=== PATIENT | male | born 1970 | race Caucasian/White ===

== ENCOUNTER 2023-01-28 02:46 | Emergency (ER) | payer OTHER, SELFPAY ==
--- NOTE | ~2023-01-28 | CT_ITS ---
EXAMINATION: CT ABDOMEN AND PELVIS WITHOUT CONTRAST CLINICAL INFORMATION: Right flank pain COMPARISON: None available. TECHNIQUE: Multidetector volumetric imaging was performed from the superior aspect of the liver through the pubic symphysis. Sagittal and coronal reformatted images were obtained on the technologist's workstation. This CT examination was performed using dose optimization techniques as appropriate, variously including the following: *Automated exposure control *Adjustment of mA and/or kV according to patient size (this includes techniques or standardized protocols for targeted exams where dose is matched to indication/reason for exam; i.e. extremities or head) *Use of iterative reconstruction technique DLP: 567 mGy-cm FINDINGS: LUNG BASES: The visualized lung bases are unremarkable. LIVER, GALLBLADDER, AND BILIARY TREE: The liver is normal in size, shape, and attenuation. No focal hepatic lesion or biliary ductal dilatation is identified on this noncontrast exam. The gallbladder is unremarkable with no evidence of radiopaque gallstones, gallbladder wall thickening, or obvious pericholecystic inflammatory changes. PANCREAS: Unremarkable. SPLEEN: Unremarkable. ADRENAL GLANDS: Unremarkable. KIDNEYS AND URETERS: No hydronephrosis or obstructing calculus bilaterally. BLADDER: Unremarkable. GASTROINTESTINAL TRACT: Limited assessment for wall thickening in the distal colon due to luminal collapse. No evidence of bowel obstruction. The appendix is unremarkable. No free fluid or free air is seen. ABDOMINAL WALL: No significant hernia is appreciated. LYMPH NODES: Normal. VASCULAR: Unremarkable. PELVIC VISCERA: Unremarkable. OSSEOUS STRUCTURES: Degenerative change in the lower lumbar spine. CT/CT abdomen pelvis wo IV con IMPRESSION: No acute findings identified in the abdomen/pelvis. No hydronephrosis or obstructing calculus.
[2023-01-28 02:48] VITALS: BP 137/85; PULSE 97; RESP 18; TEMP 36.6; O2SAT 98; BMI 27.3
--- NOTE | 2023-01-28 03:00 | ED.MALEGU ---
HPI - Male Genitourinary General Chief complaint: Urogenital-Male Stated complaint: abdominal pain Time Seen by Provider: 01/28/23 02:55 Source: patient Mode of arrival: ambulatory Limitations: no limitations History of Present Illness HPI Narrative: 1 week of right flank pain going into the groin with dysuria Complaint: testicle pain and dysuria Onset (ago): week(s) Duration: constant Related Data Previous Rx's Medication Instructions Recorded tamsulosin 0.4 mg capsule (Flomax) 0.4 mg PO BEDTIME #30 caps 01/28/23 Allergies Allergy/AdvReac Type Severity Reaction Status Date / Time No Known Allergies Allergy Verified 05/11/20 08:45 [No Known Allergies*] Review of Systems Review of Systems: Yes all other systems are reviewed and are negative Neurologic: Denies Sensory deficit (Neuro) REPLACED BY [facility] Past Medical History Surgical History History of tonsillectomy History of nasal septoplasty History of vasectomy Family History Family History Father No problems noted. Mother Pancreatic cancer Sister In good health Social History Social History Smoked in Last 30 Days: No Use of substances other than those prescribed or required for medical reasons: No Advance Directives: No Advance Directives Information Provided: Yes Physical Exam Vital Signs: Vital Signs: Last Vital Signs Temp 97.8 F 01/28/23 02:48 Pulse 97 01/28/23 02:48 Resp 18 01/28/23 02:48 BP 137/85 01/28/23 02:48 Pulse Ox 98 01/28/23 02:48 O2 Del Method Room Air 01/28/23 02:48 BMI result Body Mass Index 27.3 Const: General: healthy appearing Nutritional Appearance: average body habitus Orientation/consciousness: oriented to person and patient oriented x3 Limitations: no limitations HEENT: Head: Yes normal to inspection Ears: external ears normal General nose exam: Normal external nose present Mouth: Normal oral and palatal mucosa present and oropharynx normal Throat: Yes posterior oropharynx normal Eyes: General: appearance normal, both eyes and all related structures Neck: Other: supple Neck: Yes normal visual inspection Chest: Chest palpation & inspection: normal inspection of the chest Resp: Auscultation: clear to auscultation bilaterally Cardio: Jugular venous distension: no JVD Rate: regular rate Rhythm: regular rhythm Heart sounds: S1 normal heart sound present and S2 normal heart sound present GI: Other: no palpable bladder, bladder scan was only 230cc. Inspection: Yes normal to inspection Palpation (GI): Soft to palpation, nontender and No hepatosplenomegaly present Auscultation: normal bowel sounds Back/Spine/Pelvis: Other: mild right CVAT Skin: General skin exam: no rashes or lesions noted Neuro: General: oriented to person and patient oriented x3 Cranial nerves: Yes CN's II-XII intact bilaterally Motor exam (neuro): 5/5 motor strength present throughout Sensory Exam: No Sensory deficit (Neuro) Extrem: General: Yes normal to inspection Psych: Appearance: grossly normal Course Reevaluation(s) Reevaluation #1: no urine infection, no hematuria, CT negative for stone or hydro will have patient urinate and then get Post void residual, impression BPH Time: 05:04 Medications Administered Discontinued Medications Generic Name Dose Route Start Last Admin Trade Name Freq PRN Reason Stop Dose Admin Sodium Chloride 1,000 mls @ 999 mls/hr 01/28/23 03:00 01/28/23 04:18 Ns IVCONT 01/28/23 05:00 999 mls/hr .Q1H1M DAVID Administration Ketorolac Tromethamine 30 mg 01/28/23 03:00 01/28/23 03:11 Ketorolac Tromethamine 30 Mg/Ml Vial IVPUSH 01/28/23 03:01 30 mg ONCE ONE Administration Tamsulosin HCl 0.4 mg 01/28/23 04:07 01/28/23 04:13 Tamsulosin Hcl 0.4 Mg Capsule PO 01/28/23 04:08 0.4 mg ONCE ONE Administration Medical Decision Making Differential Diagnosis Differential Diagnoses: The differential diagnosis associated with the presentation includes (renal colic, hydronephrosis, pyelonephritis, UTI, BPH were all considered) Admission/Observation Consideration of admission/observation: Escalation of care including admission/observation considered (upon arrival patient was considered for admission) Lab Data MDM Lab Attestation statement: I reviewed the patient's lab results. (no UTI no evidence of renal failure) 01/28/23 03:10 01/28/23 03:10 Labs: Lab Results 01/28/23 Range/Units 03:10 WBC 6.9 (4.8-10.8) X10*3/uL RBC 4.65 (4.60-5.80) X10*6/uL Hgb 14.3 (14.0-18.0) g/dl Hct 40.0 L (42.0-52.0) % MCV 86.0 (80.0-98.0) fL MCH 30.8 (27.0-33.0) pg MCHC 35.8 (31.0-36.0) g/dl RDW 11.4 (11.0-16.0) % Plt Count 205 (160-400) X10*3/uL MPV 9.6 (9.4-12.4) fL Immature Gran % (Auto) 0.3 (0.0-0.4) % Neut % (Auto) 57.9 (45-73) % Lymph % (Auto) 29.2 (20-40) % [place] % (Auto) 10.2 (2-11) % Eos % (Auto) 2.0 (0-4) % Baso % (Auto) 0.4 (0-2) % Lymph # (Auto) 2.0 (1.2-4.9) X10*3/uL [place] # (Auto) 0.7 (0.1-1.2) X10*3/uL Eos # (Auto) 0.1 (0.0-0.4) X10*3/uL Baso # (Auto) 0.0 (0.0-0.2) X10*3/uL Abs Immat Gran (auto) 0.02 (0.00-0.03) X10*3/uL Absolute Neuts (auto) 4.0 (2.0-8.3) x10*3/uL Absolute Nucleated RBC 0.000 (0.0-0.012) X10*3/uL Nucleated RBC % (auto) 0.0 (0.0-0.2) /100WBC Sodium 139 (135-145) mmol/L Potassium 3.9 (3.3-5.1) mmol/L Chloride 105 (96-108) mmol/L Carbon Dioxide 22 (22-29) mmol/L Anion Gap 16 (12-20) BUN 22 H (9-16) mg/dL Creatinine 1.12 (0.5-1.4) mg/dL Estim Creat Clear Calc 88.1 Estimated GFR > 60 Random Glucose 106 (60-115) mg/dL Calcium 10.0 (8.4-10.2) mg/dL Urine Color Yellow Urine Appearance Clear Urine pH 5.5 (5.0-9.0) Ur Specific [place] 1.015 (1.005-1.025) Urine Protein Negative (Neg-Trace) mg/dL Urine Glucose (UA) Negative (Negative) mg/dL Urine Ketones Negative (Negative) mg/dL Urine Blood Negative (Negative) Urine Nitrite Negative (Negative) Ur Leukocyte Esterase Negative (Negative) Independent Interpretation I performed an independent interpretation of an: Ultrasound (bladder scan at bedside, 230cc) Independent Historian Clinical information obtained from an independent historian. History obtained from or confirmed by: Spouse Prescription Management I considered prescription management with: Antibiotic (considered no evidence of UTI) Discharge Plan Discharge Clinical Impression: Benign prostate hyperplasia Patient Disposition: Home, Self-Care Instructions: Enlarged Prostate (BPH) (ED) Prescriptions: New tamsulosin [Flomax] 0.4 mg capsule 0.4 mg PO BEDTIME Qty: 30 0RF Referrals: Sarah Freeman MD [Primary Care Provider] - 5 days Nguyễn Sesay MD [Physician] - 1 week
[2023-01-28] MEDS: 0.9 % Sodium Chloride 1,000 ML 999 ML IVCONT ×2 (03:11→04:18)
[2023-01-28] MEDS: Ketorolac Tromethamine 30 MG/ML VIAL IVPUSH (03:11)
[2023-01-28 03:16] LABS: MANUAL DIFF FLAG NO
[2023-01-28 03:17] LABS: Basophils Percent Auto 0.4 % (0-2); Eosinophils Absolute Auto 0.1 X10*3/uL (0.0-0.4); Hemoglobin 14.3 g/dl (14.0-18.0); Imm Gran Abs Auto 0.02 X10*3/uL (0.00-0.03); Imm Gran Pct Auto 0.3 % (0.0-0.4); Lymphocytes Percent Auto 29.2 % (20-40); Mean Corpuscular HGB Conc 35.8 g/dl (31.0-36.0); Mean Corpuscular Hemoglobin 30.8 pg (27.0-33.0); Mean Platelet Volume 9.6 fL (9.4-12.4); Monocytes Absolute Auto 0.7 X10*3/uL (0.1-1.2); Monocytes Percent Auto 10.2 % (2-11); Neutrophils Percent Auto 57.9 % (45-73); Platelet Count 205 X10*3/uL (160-400); Red Blood Count 4.65 X10*6/uL (4.60-5.80); Red Cell Distribution Width 11.4 % (11.0-16.0); White Blood Count 6.9 X10*3/uL (4.8-10.8)
[2023-01-28 03:18] LABS: Appearance Urine Clear; Color Urine Yellow; Glucose Urine UA Negative (Negative); Leukocyte Esterase Urine Negative (Negative); Nitrite Urine Negative (Negative); PH 5.5 (5.0-9.0); Specific Gravity - Urine 1.015 (1.005-1.025); Urine Blood Negative (Negative); Urine Ketones Negative (Negative); Urine Protein Negative (Neg-Trace)
[2023-01-28 03:30] LABS: Anion Gap 16 (12-20); Blood Urea Nitrogen 22 mg/dL (9-16); Carbon Dioxide 22 mmol/L (22-29); Chloride 105 mmol/L (96-108); Creatinine Clr Calc Pharmacy 88.1; Estimated Glomerular Filt Rate > 60; Glucose Random 106 mg/dL (60-115); Potassium 3.9 mmol/L (3.3-5.1); Sodium 139 mmol/L (135-145)
[2023-01-28] MEDS: Tamsulosin HCL 0.4 MG CAPSULE PO (04:13)
[2023-01-28 05:11] VITALS: BP 137/90; PULSE 75; RESP 16; O2SAT 98
== END 2023-01-28 05:18 | disposition home or self-care (01) ==
PROVIDERS: Emergency Provider Emergency Medicine; PCP Family Medicine
DX: N40.0 Benign prostatic hyperplasia without lower urinary tract symptoms (principal); R30.0 Dysuria; N50.812 Left testicular pain; N50.811 Right testicular pain; Z79.899 Other long term (current) drug therapy
CPT/HCPCS: 36415; 74176; 80048; 81003; 85025; 96361; 96374; 99284; J1885

== ENCOUNTER 2023-03-30 13:38 | Outpatient (AMB) | payer OTHER, SELFPAY ==
--- NOTE | 2023-03-30 13:50 | MHC.OFFVIS ---
Intake Intake Visit Reasons: ER follow up- BPH Intake Note: New Patient presents for initial visit for ER follow up BPH Urology Medications: tamsulosin Blood Thinner: none PVR: 0ml's Coal [employer]ener Required: No Accompanied by: Self / Same As Patient Allergies No Known Allergies [No Known Allergies*] Allergy (Verified 03/30/23 14:52) Medication List - Last Reconciled 03/30/23 by WALDEMAR Tim-CANDELARIA tamsulosin 0.4 mg PO BEDTIME 90 days HPI HPI Comments History of Present Illness Details Shamar is a very pleasant 52-year-old male patient of Dr. Freeman who was accompanied by his girlfriend at today's office visit. He presents to the office today as a new patient for lower urinary tract symptoms. In discussion with the patient today he reports seeking emergency room care approximately 2 months ago for feelings of incomplete bladder emptying and bladder pressure. In review of patient's chart it appears CT of the abdomen was ordered and performed through ER visit these results reviewed with the patient today. No hydronephrosis or obstructing calculi seen bilaterally. The bladder is unremarkable. He reports symptoms have since subsided and has been urinating without difficulty. He reports having taken 4 doses of Flomax and felt this was helpful at the time however feels symptoms have since subsided therefore he is no longer taking the medication. He discusses at length how he does not like to take medications as he feels it is not necessary and does not like to experience side effects. In office urinalysis results reviewed with the patient today. PVR 0 mL. When asked he denies urinary urgency, urinary frequency, incontinence, nocturia, hematuria, dysuria, foul smelling urine, changes to urinary stream, flank pain, fever, and or chills. He is happy with his current voiding parameters. Discussed at length potential causes for lower urinary tract symptoms patient had been experiencing. He otherwise denies any other issues or concerns at this time. MELISSA offered however deferred. FORMERLY [facility] Surgical History History of tonsillectomy History of nasal septoplasty History of vasectomy Family History Father No problems noted. Mother Pancreatic cancer Sister In good health Review of Systems Const All systems reviewed & are unremarkable except as noted in HPI and below Physical Exam Const General: cooperative, healthy appearing, comfortable, no acute distress, well developed, alert and awake Orientation/consciousness: patient oriented x3 Limitations: no limitations HEENT Head: Yes normal to inspection, Yes normocephalic and Yes atraumatic Ears: hearing grossly normal bilaterally Eyes General: appearance normal, both eyes and all related structures Neck Neck: Yes normal visual inspection and Yes trachea midline Chest Chest palpation & inspection: normal inspection of the chest Resp Effort & Inspection: normal respiratory effort and able to speak in complete sentences Cardio Rate: regular rate GI Inspection: Yes normal to inspection General: Yes no CVA tenderness Back/Spine/Pelvis Back: no CVA tenderness Skin General skin exam: no rashes or lesions noted Neuro General: patient oriented x3 Extrem General: Yes normal to inspection Psych Appearance: grossly normal and well kempt Mental Status: mental status grossly normal Speech and movement: Normal speech and movement present and Clear speech present Affect: normal affect Attitude: cooperative Thought process: Normal thought process present Thought content: Normal thought content present Insight: Fair insight present (Psych) Judgement: Fair judgement present (Psych) Office Procedures Post Void Residual Post Residual Void Post Void Residual (PVR): 0 [id number] Void Residual by ultrasound Results AMB Urinalysis, Automated UA Leukoctes 0 Kasia/uL Last Edit by [employer] on 03/30/23 14:05 UA Nitrite Negative Last Edit by [employer] on 03/30/23 14:05 UA Urobilinogen 0.2 mg/dL Last Edit by [employer] on 03/30/23 14:05 UA Protein 15 mg/dL Last Edit by [employer] on 03/30/23 14:05 UA pH 7.0 Last Edit by [employer] on 03/30/23 14:05 UA Blood 0 Kofi/uL Last Edit by [employer] on 03/30/23 14:05 UA Specific [place] 1.015 Last Edit by [employer] on 03/30/23 14:05 UA Ketone Negative Last Edit by [employer] on 03/30/23 14:05 UA Bilirubin 0 mg/dL Last Edit by [employer] on 03/30/23 14:05 UA Glucose 0 mg/dL Last Edit by [employer] on 03/30/23 14:05 Results Reviewed Results Reviewed: Laboratory Last Values Urine pH (Auto) 7.0 03/30/23 13:53 Specific [place] (Auto) 1.015 03/30/23 13:53 Urine Protein (Auto) 15 mg/dL 03/30/23 13:53 Glucose (UA)(Auto) 0 mg/dL 03/30/23 13:53 Urine Ketones (Auto) Negative 03/30/23 13:53 Urine Blood (Auto) 0 Kofi/uL 03/30/23 13:53 Urine Nitrite (Auto) Negative 03/30/23 13:53 Urine Bilirubin (Auto) 0 mg/dL 03/30/23 13:53 Urine Urobilinogen (Auto) 0.2 mg/dL 03/30/23 13:53 Leukocyte Esterase (Auto) 0 Kasia/uL 03/30/23 13:53 Date of Service: 01/28/23 EXAMINATION: CT ABDOMEN AND PELVIS WITHOUT CONTRAST FINDINGS: LUNG BASES: The visualized lung bases are unremarkable. LIVER, GALLBLADDER, AND BILIARY TREE: The liver is normal in size, shape, and attenuation. No focal hepatic lesion or biliary ductal dilatation is identified on this noncontrast exam. The gallbladder is unremarkable with no evidence of radiopaque gallstones, gallbladder wall thickening, or obvious pericholecystic inflammatory changes. PANCREAS: Unremarkable. SPLEEN: Unremarkable. ADRENAL GLANDS: Unremarkable. KIDNEYS AND URETERS: No hydronephrosis or obstructing calculus bilaterally. BLADDER: Unremarkable. GASTROINTESTINAL TRACT: Limited assessment for wall thickening in the distal colon due to luminal collapse. No evidence of bowel obstruction. The appendix is unremarkable. No free fluid or free air is seen. ABDOMINAL WALL: No significant hernia is appreciated. LYMPH NODES: Normal. VASCULAR: Unremarkable. PELVIC VISCERA: Unremarkable. OSSEOUS STRUCTURES: Degenerative change in the lower lumbar spine. IMPRESSION: No acute findings identified in the abdomen/pelvis. No hydronephrosis or obstructing calculus. Assessment & Plan Assessment & Plan (1) Lower urinary tract symptoms: Code(s): R39.9 - Unspecified symptoms and signs involving the genitourinary system Plan In office urinalysis results reviewed with the patient today; as noted above. PVR 0 mL. MELISSA offered however deferred. Discussed bladder triggers/irritants. Discussed, educated, and stressed the importance of drinking plenty of water daily. Patient reports lower urinary tract symptoms have since subsided and he is currently happy with current voiding parameters. Will obtain PSA for further assessment evaluation. Recent CT results reviewed with the patient today; as noted above. Discussed possible near future in office cystoscopy of lower urinary tract symptoms arise Discussed at length potential causes for lower urinary tract symptoms patient had been experiencing. Prescription provided for Flomax although patient does not want to take medication he would like prescription if lower urinary tract symptoms arise Follow-up in 3 months with lab to be completed prior; or sooner with any issues, concerns, and or questions. Orders: Orders AMB Urinalysis Automated 03/30/23 Z13.9 - Encounter for screening, unspecified AMB Post Void Residual by ultrasound 03/30/23 Z13.9 - Encounter for screening, unspecified Prostate Specific Antigen 03/30/23 R39.9 - Unspecified symptoms and signs involving the genitourinary system Medications: New tamsulosin 0.4 mg PO BEDTIME 90 caps 1RF 90 days N40.1 - Benign prostatic hyperplasia with lower urinary tract symptoms, R35.1 - Nocturia Patient Instructions: The patient had an opportunity to ask questions regarding the treatment plan. All questions were answered. Physical exam, labs, and imaging were discussed and reviewed in detail. As well as risks, benefits, and discussion of treatment choices. No major barriers to understanding were identified. The patient expressed understanding and agreement with the above treatment plan. The patient was made aware they should contact our office by phone for worsening of their current condition, the appearance of new symptoms, or with any questions or concerns. Compliance is encouraged with any medications and follow up testing that is ordered. It is a privilege to be allowed the opportunity to participate in? your urological care.? Again, if you have any questions or concerns If you have any questions or concerns please do not hesitate to contact me. The office is [phone]. This note is constructed using voice recognition software. While every effort has been made to ensure accuracy chief writer errors may have been included. Yours sincerely, WALDEMAR Tim-CANDELARIA Coding Level of Care Code New Pt Level 3 (88929) Diagnoses Lower urinary tract symptoms R39.9 CPT Codes Post Residual Void - PVR CPT Code: 89605-Zocn Void Residual by ultrasound ([id number])
== END 2023-03-30 14:26 | disposition home or self-care (01) ==
PROVIDERS: PCP Family Medicine; Referring Provider Family Medicine; Visit Provider Nurse Practitioner Family
DX: R39.9 Unspecified symptoms and signs involving the genitourinary system (principal)
CPT/HCPCS: 99203

== ENCOUNTER → 2023-03-30 13:38 | Outpatient (BNVA) | payer OTHER, SELFPAY | PROVIDERS: PCP Family Medicine; Visit Provider Nurse Practitioner Family | DX: N40.1 Benign prostatic hyperplasia with lower urinary tract symptoms (principal); R35.1 Nocturia | CPT/HCPCS: 51798; 81003; 99202 ==

== ENCOUNTER 2024-04-21 14:56 | Emergency (ER) | payer OTHER, SELFPAY ==
[2024-04-21 15:08] VITALS: BP 123/81; PULSE 86; RESP 18; TEMP 36.8; O2SAT 99; BMI 29.5
--- NOTE | 2024-04-21 15:09 | ED_ITS ---
HPI - Abdominal Pain General Chief Complaint: Abdominal Pain Stated Complaint: Lower abd pain Related Data Previous Rx's ?Medication ?Instructions ?Recorded tamsulosin 0.4 mg capsule 0.4 mg PO BEDTIME 90 days #90 caps 03/30/23 Allergies Allergy/AdvReac Type Severity Reaction Status Date / Time No Known Allergies Allergy Verified 04/21/24 15:10 [No Known Allergies*] FORMERLY [facility] Past Medical History Surgical History History of tonsillectomy History of nasal septoplasty History of vasectomy Family History Family History Father No problems noted. Mother Pancreatic cancer Sister In good health Social History Social History Advance Directives: No Advance Directives Information Provided: No Do you have a plan to hurt others: No Plan Physical Exam ED Vital Signs: Vital Signs - 24 hr 04/21/24 15:08 Temperature 98.3 F Pulse Rate 86 Respiratory Rate 18 Blood Pressure 123/81 Pulse Oximetry 99 Oxygen Delivery Method Room Air BMI result Body Mass Index 29.5 Course Course Course Narrative: This is an RME: Additional HPI, ROS, PE not included below will be deferred to primary provider. RME assessment and note performed by: Hannah Schilling PA-C This is a 53-year-old male who presents to the ER with complaints of lower abdominal pain x Dec 2022. He reports urinary hesitancy since January 19, 2023. He also reports intermittent burning sensation in his lower abdomen. Has been going to urgent cares multiple times since January 19, 2023 but continues to be prescribed tamsulosin, and does not have resolution of his symptoms. He states that he has been in [facility] and has not been able to follow-up with Urology, last seen 2022. He reports that he now has had changes in his stool over the last week. Plan: Labs, UA, +/- imaging, deferred to primary provider. Reevaluation(s) Reevaluation #1: Patient left without completing treatment. Medical Decision Making Lab Data 04/21/24 15:35 04/21/24 15:35 Labs: Lab Results 04/21/24 Range/Units 15:35 WBC 5.5 (4.8-10.8) X10*3/uL RBC 4.93 (4.60-5.80) X10*6/uL Hgb 15.1 (14.0-18.0) g/dl Hct 42.5 (42.0-52.0) % MCV 86.2 (80.0-98.0) fL MCH 30.6 (27.0-33.0) pg MCHC 35.5 (31.0-36.0) g/dl RDW 11.4 (11.0-16.0) % Plt Count 188 (160-400) X10*3/uL MPV 9.6 (9.4-12.4) fL Immature Gran % (Auto) 0.2 (0.0-0.4) % Neut % (Auto) 61.4 (45-73) % Lymph % (Auto) 22.9 (20-40) % [place] % (Auto) 11.7 H (2-11) % Eos % (Auto) 3.4 (0-4) % Baso % (Auto) 0.4 (0-2) % Lymph # (Auto) 1.3 (1.2-4.9) X10*3/uL [place] # (Auto) 0.7 (0.1-1.2) X10*3/uL Eos # (Auto) 0.2 (0.0-0.4) X10*3/uL Baso # (Auto) 0.0 (0.0-0.2) X10*3/uL Abs Immat Gran (auto) 0.01 (0.00-0.03) X10*3/uL Absolute Neuts (auto) 3.4 (2.0-8.3) x10*3/uL Absolute Nucleated RBC 0.000 (0.0-0.012) X10*3/uL Nucleated RBC % (auto) 0.0 (0.0-0.2) /100WBC Sodium 139 (135-145) mmol/L Potassium 4.1 (3.3-5.1) mmol/L Chloride 105 (96-108) mmol/L Carbon Dioxide 24 (22-29) mmol/L Anion Gap 14 (12-20) BUN 16 (9-16) mg/dL Creatinine 1.10 (0.5-1.4) mg/dL Estim Creat Clear Calc 95.6 Estimated GFR > 60 Random Glucose 91 (60-115) mg/dL Calcium 9.5 (8.4-10.2) mg/dL Magnesium 2.1 (1.6-2.6) mg/dL Total Bilirubin 0.5 (0.0-1.0) mg/dL Direct Bilirubin 0.2 (0.0-0.5) mg/dL AST 36 (5-37) U/L ALT 39 (0-40) U/L Alkaline Phosphatase 63 (39-117) U/L Total Protein 7.7 (6.5-8.0) g/dL Albumin 4.2 (3.5-5.0) g/dL Lipase 25 (8-78) U/L Urine Color Yellow Urine Appearance Clear Urine pH 5.5 (5.0-9.0) Ur Specific [place] 1.020 (1.005-1.025) Urine Protein Negative (Neg-Trace) mg/dL Urine Glucose (UA) Negative (Negative) mg/dL Urine Ketones Trace (Negative) mg/dL Urine Blood Negative (Negative) Urine Nitrite Negative (Negative) Ur Leukocyte Esterase Negative (Negative) Discharge Plan Discharge Clinical Impression: Abdominal pain Patient Disposition: Left W/O Completing Treatment Prescriptions: No Action tamsulosin 0.4 mg capsule 0.4 mg PO BEDTIME 90 Days Qty: 90 1RF Discharge Date/Time: 04/21/24 22:30
[2024-04-21 15:40] LABS: MANUAL DIFF FLAG NO
[2024-04-21 15:41] LABS: Basophils Percent Auto 0.4 % (0-2); Eosinophils Absolute Auto 0.2 X10*3/uL (0.0-0.4); Eosinophils Percent Auto 3.4 % (0-4); Hematocrit 42.5 % (42.0-52.0); Hemoglobin 15.1 g/dl (14.0-18.0); Imm Gran Abs Auto 0.01 X10*3/uL (0.00-0.03); Imm Gran Pct Auto 0.2 % (0.0-0.4); Lymphocytes Absolute Auto 1.3 X10*3/uL (1.2-4.9); Lymphocytes Percent Auto 22.9 % (20-40); Mean Corpuscular HGB Conc 35.5 g/dl (31.0-36.0); Mean Corpuscular Hemoglobin 30.6 pg (27.0-33.0); Mean Corpuscular Volume 86.2 fL (80.0-98.0); Mean Platelet Volume 9.6 fL (9.4-12.4); Monocytes Absolute Auto 0.7 X10*3/uL (0.1-1.2); Monocytes Percent Auto 11.7 % (2-11); Neutrophils Absolute Auto 3.4 x10*3/uL (2.0-8.3); Neutrophils Percent Auto 61.4 % (45-73); Platelet Count 188 X10*3/uL (160-400); Red Blood Count 4.93 X10*6/uL (4.60-5.80); Red Cell Distribution Width 11.4 % (11.0-16.0); White Blood Count 5.5 X10*3/uL (4.8-10.8)
[2024-04-21 15:43] LABS: Appearance Urine Clear; Color Urine Yellow; Glucose Urine UA Negative (Negative); Leukocyte Esterase Urine Negative (Negative); Nitrite Urine Negative (Negative); PH 5.5 (5.0-9.0); Urine Blood Negative (Negative); Urine Ketones Trace mg/dL (Negative); Urine Protein Negative (Neg-Trace)
[2024-04-21 16:13] LABS: Alanine Aminotransferase 39 U/L (0-40); Albumin Level 4.2 g/dL (3.5-5.0); Alkaline Phosphatase 63 U/L (39-117); Anion Gap 14 (12-20); Aspartate Amino Transferase 36 U/L (5-37); Bilirubin Direct 0.2 mg/dL (0.0-0.5); Bilirubin Total 0.5 mg/dL (0.0-1.0); Blood Urea Nitrogen 16 mg/dL (9-16); Calcium 9.5 mg/dL (8.4-10.2); Carbon Dioxide 24 mmol/L (22-29); Chloride 105 mmol/L (96-108); Creatinine Clr Calc Pharmacy 95.6; Estimated Glomerular Filt Rate > 60; Glucose Random 91 mg/dL (60-115); Lipase 25 U/L (8-78); Magnesium 2.1 mg/dL (1.6-2.6); Potassium 4.1 mmol/L (3.3-5.1); Sodium 139 mmol/L (135-145); Total Protein 7.7 g/dL (6.5-8.0)
== END 2024-04-21 22:30 | disposition left against medical advice (07) ==
LOC: HO.ED 21:59
PROVIDERS: Physician Assistant Medical; Emergency Provider Emergency Medicine; PCP Family Medicine
DX: R10.30 Lower abdominal pain, unspecified (principal); R39.11 Hesitancy of micturition
CPT/HCPCS: 36415; 80048; 80076; 81003; 83690; 83735; 85025; 99282; 99283

== ENCOUNTER 2024-04-22 12:34 | Outpatient (REF) | payer OTHER, SELFPAY ==
--- OUTSIDE RECORDS SUMMARY | 2024-04-22 14:10 | XMS_ITS | Clinical Summary ---
Author Organization [facility] Address [address] [place] [phone] Phone Care Team Providers Care Manager Code Name Role Phone Physician, No Pcp Primary Care Provider Unavaila ble Allergies No known active allergies Social History Tobacco Use Types Packs/Day Years Used Date Smoking Tobacco: Never Assessed Sex and Gender Information Value Date Recorded Sex Assigned at Not on file Gender Identity Not on file Sexual Orientation Not on file Job Start Date Occupation Industry Not on file Not on file Not on file Last Filed Vital Signs Vital Sign Reading Time Taken Comments Blood Pressure 134/85 05/18/2023 11:31 AM EST Pulse 86 05/18/2023 11:31 AM EST Temperature 36.2 ??C (97.1 ??F) 05/18/2023 11:[address] Respiratory Rate 18 05/18/2023 11:31 AM EST Oxygen Saturation 97% 05/18/2023 11:31 AM EST Inhaled Oxygen Concentration - - Weight 97.5 kg (215 lb) 05/18/2023 11:31 AM EST Height 185.4 cm (6' 1 ) 05/18/2023 11:31 AM EST Body Mass Index 28.37 05/18/2023 11:31 AM EST Plan of Treatment Health Maintenance Due Date Last Done Comments IPV Vaccines (2 of 3 - Adult catch-up series) 01/20/1994 12/23/1993 Zoster Vaccines (1 of 2) 2021 DTaP,Tdap,and Td Vaccines (5 - Td or Tdap) 12/14/2021 12/15/2011, 12/15/2011, 06/29/2003, Additional history exists Cholesterol Screening (Lipid Panel) 05/18/2023 Colorectal Cancer Screening: Colonoscopy 05/18/2023 Depression Screening 05/18/2023 HIV Screening 05/18/2023 Hepatitis C Screening 05/18/2023 Social Influencers of Health Screening 05/18/2023 COVID-19 Vaccine ( season) 2023 Influenza Vaccine (#1) 2023 8, 01/15/2016, 01/31/2015, Additional history exists Hepatitis A Vaccines Aged Out 12/08/1997, 03/01/19 95 No longer eligible based on patient's age to complete this topic Meningococcal ACWY Vaccine Aged Out 12/23/2002, No longer eligible based on patient's age to complete this topic Hepatitis B Vaccines Completed 01/22/2004, 08/13/2003, 06/29/2003 HIB Vaccines Aged Out No longer eligi ble based on patient's age to complete this topic HPV Vaccines Aged Out No longer eligi ble based on patient's age to complete this topic MMR Vaccines Aged Out No longer eligi ble based on patient's age to complete this topic Pneumococcal Vaccine: Pediatrics (0 to 5 Years) and At-Risk Patients (6 to 64 Years) Aged Out No longer eligible based on patient's age to complete this topic RSV Immunization Patients Under 20 months Aged Out No longer eligible based on patient's age to complete this topic Varicella Vaccines Aged Out No longer eligible based on patient's age to complete this topic Care Teams Manager Code Relationship Specialty Start Date End Date Physician, No Pcp PCP - General 05/18/23
[2024-04-22 14:13] LABS: Prostate Specific Antigen 0.36 ng/mL (<0.05-4.0)
== END 2024-04-22 12:35 | disposition home or self-care (01) ==
LOC: HO.LAB 12:34
PROVIDERS: PCP Family Medicine; Visit Provider Nurse Practitioner Family
DX: N40.0 Benign prostatic hyperplasia without lower urinary tract symptoms (principal); R39.9 Unspecified symptoms and signs involving the genitourinary system; Z12.5 Encounter for screening for malignant neoplasm of prostate
CPT/HCPCS: 36415; 84153

== ENCOUNTER 2024-07-28 13:34 | Outpatient (AMB) | payer OTHER, SELFPAY ==
--- NOTE | 2024-07-28 13:37 | A.OFFVIS_ITS ---
Intake Visit Reasons: Follow up Intake Note: Patient presents today for follow up on: LUTS and PSA lab results PSA: 0.36 Urology Medications: none Blood Thinner: none PVR: 0ml's Stoker Erector Required: No Accompanied by: Self / Same As Patient Allergies No Known Allergies [No Known Allergies*] Allergy (Verified 07/28/24 14:28) Medication List - Last Reconciled 07/28/24 by BULMARO Tim alfuzosin ER 10 mg PO BEDTIME 30 days HPI Comments Details: Shamar is a 53-year-old male patient of Dr. Freeman who was accompanied by his girlfriend at today's office visit. He presents to the office today for follow-up. Of note, patient was seen approximately 18 months ago as a new pa tient for lower urinary tract symptoms at which time recommendations were made for retroperitoneal ultrasound for further assessment evaluation in the patient was started on low-dose Flomax. However, in discussion with the patient today he reports feeling lower urinary tract symptoms are labile and at times not bothersome therefore did not keep scheduled follow-up. Patient brings with him today recent CT imaging results that note the kidneys are unremarkable with no calculi, lesions, and or hydronephrosis. However, bladder wall thickening noted. He reports feeling at times a vibrating sensation to his bladder area as well as bladder pressure. He otherwise denies urinary urgency, urinary frequency, incontinence, nocturia, hematuria, dysuria, foul smelling urine, changes to urinary stream, flank pain, fever, and or chills. In office urinalysis results reviewed with the patient today pH 5.5 otherwise within normal limits. PVR 0 mL. We discussed low pH in relation to lower urinary tract symptoms patient was experiencing. He does report drinking approximately half a pot of coffee a day. We discussed bladder triggers and irritants. He reports having trialed Flomax for 1 week however does not recall if he found this helpful. MELISSA offered however deferred. In review of patient's chart it appears PSA 04/26 0.4. We discussed in office cystoscopy for further assessment evaluation and risks and benefits of this intervention. All questions were answered. He otherwise offers no other issues or concerns at this time. History of Present Illness The patient is a 54-year-old male presenting due to bladder wall thickening and urinary concerns. He was advised Tamsulosin in the past but discontinued due to symptom inconsistency. Imaging revealed bladder wall thickening, with the measurement indicating a borderline increase. He does not experience incomplete bladder emptying but has a recurring burning sensation potentially linked to caffeine consumption, leading to high urine acidity. He expresses concerns regarding certain side effects from medications, notably retrograde ejaculation. Currently, there is a sensation of pulsation in the pelvic area, but no other significant genitourinary symptoms are reported. Plan I advise resuming alpha-derrick therapy with trial of Alfuzosin to manage bladder wall thickening, balancing efficacy and side effect profile. A cystos copy is planned to assess the bladder condition, with informed consent obtained. Lifestyle modifications, particularly reducing caffeine, are advised to address urine acidity. We also discussed bladder triggers and irritants. Continuous monitoring and proactive symptom management are crucial. Patient was informed and verbally consented to the use of an ambient scribe for clinic note documentation during this visit. Discussion Notes I discussed with the patient the current findings of bladder wall thickening and the importance of lifestyle changes. We reviewed the use of alpha-blockers, par ticularly the option of switching to Alfuzosin to avoid retrograde ejaculation. I clarified the expected benefits and side effects of the medication and emphasized taking it at night. A cystoscopy was recommended to assess the bladder for further assessment evaluation. Follow-up care will focus on preventive strategies to prevent symptom progression. The patient consented to the recommended plan, acknowledging the risks, benefits, and possible alternatives. [facility] Surgical History History of tonsillectomy History of nasal septoplasty History of vasectomy Family History Father No problems noted. Mother Pancreatic cancer Sister In good health Review of Systems Const All systems reviewed & are unremarkable except as noted in HPI and below Physical Exam Const General: cooperative, healthy appearing, comfortable, no acute distress, well developed, alert and awake Orientation/consciousness: patient oriented x3 Limitations: no limitations HEENT Head: Yes normal to inspection, Yes normocephalic and Yes atraumatic Ears: hearing grossly normal bilaterally Eyes General: appearance normal, both eyes and all related structures Neck Neck: Yes normal visual inspection and Yes trachea midline Chest Chest palpation & inspection: normal inspection of the chest Resp Effort & Inspection: normal respiratory effort and able to speak in complete sentences Cardio Rate: regular rate GI Inspection: Yes normal to inspection General: Yes no CVA tenderness Back/Spine/Pelvis Back: no CVA tenderness Skin General skin exam: no rashes or lesions noted Neuro General: patient oriented x3 Extrem General: Yes normal to inspection Psych Appearance: grossly normal and well kempt Mental Status: mental status grossly normal Speech and movement: Normal speech and movement present and Clear speech present Affect: normal affect Attitude: cooperative Thought process: Normal thought process present Thought content: Normal thought content present Insight: Fair insight present (Psych) Judgement: Fair judgement present (Psych) Office Procedures Post Void Residual Post Residual Void Post Void Residual (PVR): 0 31751-Gfhm Void Residual by ultrasound Results AMB Urinalysis, Automated UA Leukoctes 0 Kasia/uL Last Edit by SwipeClock on 07/28/24 14:01 UA Nitrite Last Edit by SwipeClock on 07/28/24 14:01 UA Urobilinogen 0.2 mg/dL Last Edit by SwipeClock on 07/28/24 14:01 UA Protein 15 mg/dL Last Edit by SwipeClock on 07/28/24 14:01 UA pH 5.5 Last Edit by SwipeClock on 07/28/24 14:01 UA Blood 0 Kofi/uL Last Edit by SwipeClock on 07/28/24 14:01 UA Specific [place] 1.025 Last Edit by SwipeClock on 07/28/24 14:01 UA Ketone Last Edit by SwipeClock on 07/28/24 14:01 UA Bilirubin 0 mg/dL Last Edit by SwipeClock on 07/28/24 14:01 UA Glucose 0 mg/dL Last Edit by SwipeClock on 07/28/24 14:01 Results Reviewed Results Reviewed: Laboratory Last Values Urine pH (Auto) 5.5 04/28/25 13:59 Specific [place] (Auto) 1.025 07/28/24 13:59 Urine Protein (Auto) 15 mg/dL 07/28/24 13:59 Glucose (UA)(Auto) 0 mg/dL 07/28/24 13:59 Urine Blood (Auto) 0 Kofi/uL 07/28/24 13:59 Urine Bilirubin (Auto) 0 mg/dL 07/28/24 13:59 Urine Urobilinogen (Auto) 0.2 mg/dL 07/28/24 13:59 Leukocyte Esterase (Auto) 0 Kasia/uL 07/28/24 13:59 Assessment & Plan Assessment & Plan (1) Sensation of pressure in bladder area: Code(s): R39.89 - Other symptoms and signs involving the genitourinary system Category: Medical (2) Bladder wall thickening: Code(s): N32.89 - Other specified disorders of bladder Category: Medical Plan In office urinalysis results reviewed with the patient today; as noted above. PVR 0 mL. Most recent PSA results reviewed with the patient today; as noted above. We discussed bladder wall thickening as well as further treatment options and r isks and benefits of these treatment options. Start alfuzosin as discussed and prescribed. We discussed importance of following up as planned. We discussed bladder triggers/irritants. Most recent CT report results reviewed with the patient today; as noted above. Follow-up next available in office cystoscopy; or sooner with any issues, concerns, and or questions. Orders: Orders AMB Post Void Residual by ultrasound Today R39.9 - Unspecified symptoms and signs involving the genitourinary system AMB Urinalysis Automated Today Z13.9 - Encounter for screening, unspecified Medications: New alfuzosin ER Take before bedtime 10 mg PO BEDTIME 30 tabs 3RF 30 days Patient Instructions: The patient had an opportunity to ask questions regarding the treatment plan. All questions were answered. Physical exam, labs, and imaging were discussed and reviewed in detail. As well as risks, benefits, and discussion of treatment choices. No major barriers to understanding were identified. The patient expressed understanding and agreement with the above treatment plan. The patient was made aware they should contact our office by phone for worsening of their current condition, the appearance of new symptoms, or with any questions or concerns. Compliance is encouraged with any medications and follow up testing that is ordered. It is a privilege to be allowed the opportunity to participate in? your urological care.? Again, if you have any questions or concerns If you have any questions or concerns please do not hesitate to contact me. The office is [phone]. This note is constructed using voice recognition software. While every effort has been made to ensure accuracy paper tester errors may have been included. Yours sincerely, BULMARO Tim Coding Level of Care Code Est Pt Level 4 (20797) Diagnoses Sensation of pressure in bladder area R39.89 Bladder wall thickening N32.89 CPT Codes Post Residual Void - PVR CPT Code: 64796-Foac Void Residual by ultrasound ([id number])
--- OUTSIDE RECORDS SUMMARY | 2024-07-28 16:13 | XMS_ITS | Clinical Summary ---
Author Organization [facility] Address [address] [place] [phone] Phone Care Team Providers Care Ship Runner Name Role Phone Physician, No Pcp Primary Care Provider Unavaila ble Allergies No known active allergies Medications FLUoxetine (PROzac) 20 mg capsule Take 1 capsule (20 mg total) by mouth 1 (one) time each day in the morning. 01/14/2016 Active diazePAM (VALIUM) 2 mg tablet Take 1 tablet (2 mg total) by mouth 1 (one) time each day if needed. Max Daily Amount: 2 mg 07/07/2024 Active Encounters Date Type Department Care Team Description 07/17/2024 12:07 PM EDT - 07/17/2024 2:36 PM EDT Emergency [facility] ([facility]) [address] [place] [phone] Flor Recio MD Adjustment disorder, unspecified type (Primary Dx) Discharge Disposition: Home or Self Care from Last 3 Months Social History Tobacco Use Types Packs/Day Years Used Date Smoking Tobacco: Unknown Tobacco Cessation:Counseling Given: Not Answered Housing Instability Answer Date Recorde d Are you worried that in the next 2 months you may not have stable housing? No 07/17/2024 Food Access & Nutrition Answer Date Rec orded Do you have access to a vari ety of food including fruits and vegetables? Yes 07/17/2024 Financial Risk Answer Date Recorded How hard is it for you to pa y for the very basics like food, housing, medical care, and air conditioning / heating? Patient declined 07/17/2024 Food Risk Answer Date Recorded Within the past 12 months we worried whether our food would run out before we got money to buy more. Never true 07/17/2024 Within the past 12 months th e food we bought just didn't last and we didn't have money to get more. Never true 07/17/2024 Interpersonal Safety Answer Date Record ed Physical Abuse 07/17/2024 Verbal Abuse 07/17/2024 Sex and Gender Information Value Date Recorded Sex Assigned at Not on file Legal Sex Male 11:16 AM EST Gender Identity Male 07/17/2024 11:38 AM EDT Sexual Orientation Not on file Obstetrics History Last Filed Vital Signs Vital Sign Reading Time Taken Comments Blood Pressure 133/90 07/17/2024 12:06 PM EDT Pulse 89 07/17/2024 12:06 PM EDT Temperature 36.6 ??C (97.9 ??F) 07/17/2024 12:06 PM E DT Respiratory Rate 18 07/17/2024 12:06 PM EDT Oxygen Saturation 100% 07/17/2024 12:06 PM EDT Inhaled Oxygen Concentration - - Weight 95.3 kg (210 lb) 07/17/2024 12:06 PM EDT Height 185.4 cm (6' 1 ) 07/17/2024 12:06 PM EDT Body Mass Index 27.71 07/17/2024 12:06 PM EDT Plan of Treatment Health Maintenance Due Date Last Done Comments Hepatitis B Vaccines (1 of 3 - 19+ 3-dose series) 1990 Pneumococcal Vaccine: 50+ Years (1 of 1 - PCV) 2021 Zoster Vaccines (1 of 2) 2021 DTaP,Tdap,and Td Vaccines (2 - Tdap) 12/14/2021 12/15/2011 Cholesterol Screening (Lipid Panel) 05/18/2023 Colorectal Cancer Screening: Colonoscopy 05/18/2023 Depression Screening 05/18/2023 HIV Screening 05/18/2023 Hepatitis C Screening 05/18/2023 COVID-19 Vaccine (1 - 2023-2 5 season) 2023 Influenza Vaccine (Season Ended) 2024 01/24/2018, 01/15/2016, 01/31/2015 Social Influencers of Health Screening 07/17/2025 07/17/2024 HIB Vaccines Aged Out No longer eligi ble based on patient's age to complete this topic HPV Vaccines Aged Out No longer eligi ble based on patient's age to complete this topic Hepatitis A Vaccines Aged Out No long er eligible based on patient's age to complete this topic IPV Vaccines Aged Out No longer eligi ble based on patient's age to complete this topic MMR Vaccines Aged Out No longer eligi ble based on patient's age to complete this topic Meningococcal ACWY Vaccine Aged Out N o longer eligible based on patient's age to complete this topic Meningococcal B Vaccine Aged Out No l onger eligible based on patient's age to complete this topic Pneumococcal Vaccine: Pediatrics (0 to 5 Years) and At-Risk Patients (6 to 64 Years) Aged Out No longer eligible b ased on patient's age to complete this topic RSV Immunization Patients Under 20 months Aged Out No longer eligible b ased on patient's age to complete this topic Varicella Vaccines Aged Out No longer eligible based on patient's age to complete this topic Insurance [facility] Care Teams Ship Runner Relationship Specialty Start Date End Date Physician, No Pcp PCP - General 05/18/23
== END 2024-07-28 14:27 | disposition home or self-care (01) ==
LOC: HO.HUSH 13:35
PROVIDERS: PCP Family Medicine; Visit Provider Nurse Practitioner Family
DX: R39.89 Other symptoms and signs involving the genitourinary system (principal); N32.89 Other specified disorders of bladder; Z13.9 Encounter for screening, unspecified
CPT/HCPCS: 99214

== ENCOUNTER → 2024-07-28 13:34 | Outpatient (BNVA) | payer OTHER, SELFPAY | PROVIDERS: PCP Family Medicine; Visit Provider Nurse Practitioner Family | DX: R39.89 Other symptoms and signs involving the genitourinary system (principal); N32.89 Other specified disorders of bladder | CPT/HCPCS: 51798; 81003; 99212 ==

== ENCOUNTER 2024-08-15 11:01 | Outpatient (REF) | payer OTHER, SELFPAY ==
[2024-08-15 11:13] LABS: MANUAL DIFF FLAG NO
--- OUTSIDE RECORDS SUMMARY | 2024-08-15 11:30 | XMS_ITS | Clinical Summary ---
Author Organization [facility] Address [address] [place] [phone] Phone Care Team Providers Care Ice Guard Inspector Name Role Phone Physician, No Pcp Primary [...] EDT - 07/17/2024 2:36 PM EDT Emergency [facility] ([facility]) [address] [place] [phone] Flor Recio MD Adjustment disorder, unspecified [...] patient's age to complete this topic Insurance [facility] Care Teams Ice Guard Inspector Relationship Specialty Start Date End Date Physician, No Pcp PCP - General 05/18/23
--- OUTSIDE RECORDS SUMMARY | 2024-08-15 11:30 | XMS_ITS ---
Author Organization [facility] Address [address] [place] [address] Care Team Providers Care Melon Packer Name Role Phone SAMIR SMITH M.D. Primary Care Provider Zi Zarate Unavailable [phone] Allergies No Known Allergies REASON FOR VISIT Patient presents today for a screening colon Medications Medication SIG (Take, Route, Frequency, Duration) Notes Start Date End Date Status Tamsulosin HCl 0.4 MG 1 capsule Orally O nce a day Active PROzac 20 MG 1 capsule Orally Onc e a day Active Vitamin D 50 MCG (1999) 1 tablet Orally Once a day Active Immunizations Vaccine Route Administration Date Status Comme nts Influenza Unknown 08/13/2024 Refused Social History Tobacco Use: Social History Observation Description Date Details (start date - stop date) Never Smoker NA - NA Tobacco Control (Standard) Question Answer Notes Tobacco use: Nonsmoker AUDIT-C (Standard) Question Answer Notes Did you have a drink containing alcohol in the p ast year? No Points 0 Interpretation Negative Section Notes: Occ. pipe, rare EtOH Problems Problem Type SNOMED Code ICD Code Onset Dates Problem Status W/U Status Risk Notes Problem Right lower quadrant pain (189092457) RLQ abdominal pain (R10.31) Active confirmed Problem Irritable bowel syndrome (74592047) Irritable bowel syndrome (K58.9) Active confirmed Problem Imaging of gastrointestinal tract abnormal (478893247) Abnormal CT scan, gastrointestinal tract (R93.3) Active confirmed Problem Colon cancer screening (Z12.11) Active confirmed Vital Signs Temperature 97.9 degrees Fahrenheit 08/14/19 25 Blood pressure systolic 001 mm Hg 08/14/19 25 Blood pressure diastolic 01 mm Hg 025 Height 73 in 08/13/2024 Weight 211 lbs 08/13/2024 BMI 27.84 kg/m2 08/13/2024 Procedures Procedure Date Ordered Date Performed Result Body Sit e COLONOSCOPY 08/13/2024 N/A Encounters Encounter Location Date Provider Diagnosis [facility] [address] [place] [address] 08/13/2024 Zi Martinez RLQ abdominal pain R 10.31 ; Irritable bowel syndrome K58.9 ; Abnormal CT scan, gastrointestinal tract R93.3 and Colon cancer screening Z12.11 Assessments Encounter Date Diagnosis (ICD Code) Assessment Notes Treatment Notes Treatment Clinical Notes Section Notes 08/13/2024 RLQ abdominal pain (ICD-10 - R10.31) Use Dicyclomine as needed fopr the abdominal pain Overall, Carlos appears very well from a clinical standpoint. In regard to the etiology of his symptoms we did review the possibility that this could be some irritable bowel syndrome triggered by all of the stress that he has been under. As such, I did advise him that would be important to try to improve his bowel movement regularity and have instructed him to begin using Metamucil once or twice a day with a lot of water. I also advised him that he could try to use the dicyclomine prescription he has on apparent basis for his abdominal discomfort. However, I did advise him I would be important to exclude other things such as Crohn's disease given the recent CT scan description of the small bowel. Would also be important to rule out any other type of inflammatory bowel disease involving the colon. I think a GI neoplasm would be less likely given his good clinical appearance, reported normal laboratories, and no sign of any colonic mass on the imaging study. I did recommend a colonoscopy both for general screening purposes, as well as for evaluation of all of his symptoms and the recent abnormal CT scan. Full consent has been obtained for this, including risks of bleeding and perforation. We did review the rationale for this in regard to colorectal cancer prevention and/or early detection. The procedure will be done with monitored anesthesia care. At this point I do not think he needs an upper endoscopy given no upper GI symptoms whatsoever. I shall also check some laboratories as described below.. We shall try to get the colonoscopy scheduled fairly soon but I did advise him to contact me prior to that if he has any problems or questions I can be of assistance with. I did advise him to certainly go to the ER if he develops any worsening pain or other associated symptoms such as fevers, vomiting, or bleeding. Carlos was comfortable with this plan. Thank you again for allowing me to participate in Carlos's care. I shall continue to keep you advised of his progress.. 08/13/2024 Irritable bowel syndrome (ICD-10 - K58.9) Start using 2 Metamucil fiber pills once or twice a day with a lot of water to try to make the BM's more regular Overall, Carlos appears very well from a clinical standpoint. In regard to the etiology of his symptoms we did review the possibility that this could be some irritable bowel syndrome triggered by all of the stress that he has been under. As such, I did advise him that would be important to try to improve his bowel movement regularity and have instructed him to begin using Metamucil once or twice a day with a lot of water. I also advised him that he could try to use the dicyclomine prescription he has on apparent basis for his abdominal discomfort. However, I did advise him I would be important to exclude other things such as Crohn's disease given the recent CT scan description of the small bowel. Would also be important to rule out any other type of inflammatory bowel disease involving the colon. I think a GI neoplasm would be less likely given his good clinical appearance, reported normal laboratories, and no sign of any colonic mass on the imaging study. I did recommend a colonoscopy both for general screening purposes, as well as for evaluation of all of his symptoms and the recent abnormal CT scan. Full consent has been obtained for this, including risks of bleeding and perforation. We did review the rationale for this in regard to colorectal cancer prevention and/or early detection. The procedure will be done with monitored anesthesia care. At this point I do not think he needs an upper endoscopy given no upper GI symptoms whatsoever. I shall also check some laboratories as described below.. We shall try to get the colonoscopy scheduled fairly soon but I did advise him to contact me prior to that if he has any problems or questions I can be of assistance with. I did advise him to certainly go to the ER if he develops any worsening pain or other associated symptoms such as fevers, vomiting, or bleeding. Carlos was comfortable with this plan. Thank you again for allowing me to participate in Carlos's care. I shall continue to keep you advised of his progress.. 08/13/[address] scan, gastrointestinal tract (ICD-10 - R93.3) Overall, Carlos appears very well from a clinical standpoint. In regard to the etiology of his symptoms we did review the possibility that this could be some irritable bowel syndrome triggered by all of the stress that he has been under. As such, I did advise him that would be important to try to improve his bowel movement regularity and have instructed him to begin using Metamucil once or twice a day with a lot of water. I also advised him that he could try to use the dicyclomine prescription he has on apparent basis for his abdominal discomfort. However, I did advise him I would be important to exclude other things such as Crohn's disease given the recent CT scan description of the small bowel. Would also be important to rule out any other type of inflammatory bowel disease involving the colon. I think a GI neoplasm would be less likely given his good clinical appearance, reported normal laboratories, and no sign of any colonic mass on the imaging study. I did recommend a colonoscopy both for general screening purposes, as well as for evaluation of all of his symptoms and the recent abnormal CT scan. Full consent has been obtained for this, including risks of bleeding and perforation. We did review the rationale for this in regard to colorectal cancer prevention and/or early detection. The procedure will be done with monitored anesthesia care. At this point I do not think he needs an upper endoscopy given no upper GI symptoms whatsoever. I shall also check some laboratories as described below.. We shall try to get the colonoscopy scheduled fairly soon but I did advise him to contact me prior to that if he has any problems or questions I can be of assistance with. I did advise him to certainly go to the ER if he develops any worsening pain or other associated symptoms such as fevers, vomiting, or bleeding. Carlos was comfortable with this plan. Thank you again for allowing me to participate in Carlos's care. I shall continue to keep you advised of his progress.. 08/13/2024 Colon cancer screening (ICD-10 - Z12.11) Overall, Carlos appears very well from a clinical standpoint. In regard to the etiology of his symptoms we did review the possibility that this could be some irritable bowel syndrome triggered by all of the stress that he has been under. As such, I did advise him that would be important to try to improve his bowel movement regularity and have instructed him to begin using Metamucil once or twice a day with a lot of water. I also advised him that he could try to use the dicyclomine prescription he has on apparent basis for his abdominal discomfort. However, I did advise him I would be important to exclude other things such as Crohn's disease given the recent CT scan description of the small bowel. Would also be important to rule out any other type of inflammatory bowel disease involving the colon. I think a GI neoplasm would be less likely given his good clinical appearance, reported normal laboratories, and no sign of any colonic mass on the imaging study. I did recommend a colonoscopy both for general screening purposes, as well as for evaluation of all of his symptoms and the recent abnormal CT scan. Full consent has been obtained for this, including risks of bleeding and perforation. We did review the rationale for this in regard to colorectal cancer prevention and/or early detection. The procedure will be done with monitored anesthesia care. At this point I do not think he needs an upper endoscopy given no upper GI symptoms whatsoever. I shall also check some laboratories as described below.. We shall try to get the colonoscopy scheduled fairly soon but I did advise him to contact me prior to that if he has any problems or questions I can be of assistance with. I did advise him to certainly go to the ER if he develops any worsening pain or other associated symptoms such as fevers, vomiting, or bleeding. Carlos was comfortable with this plan. Thank you again for allowing me to participate in Carlos's care. I shall continue to keep you advised of his progress.. Plan Of Treatment Treatment Notes Assessment Notes RLQ abdominal pain Use Dicyclomine as n eeded fopr the abdominal pain Irritable bowel syndrome Start using 2 M etamucil fiber pills once or twice a day with a lot of water to try to make the BM's more regular Pending Test Test Name Order Date COLONOSCOPY 08/13/2024 CRP 08/13/2024 CBC w DIFF 08/13/2024 SED RATE (ESR) 08/13/2024 CELIAC PANEL #10 08/13/2024 TSH reflex Free T4 08/13/2024 Next Appt Details Provider Name:Zi Choi Michelle , 08/21/2024 02:30:00 PM, [address] [place] [address] , [place], [place], [phone], Progress Notes * ERMELINDA KCOB: 2 (54 yo M)Acc No.[id number]:08/13/2024 Progress Notes Patient:?CARLOS KC Provider:?Zi Martinez MD :1970???Age:54 Y???Sex:Male Seferino e:08/13/2024 Address:[address] [place] [address] Pcp:SAMIR SMITH M.D. Subjective: * Chief Complaints: * ???1. Patient presents today for a screening colon. * HPI: ???incontinence:? I saw Carlos in consultation today [facility] for the evaluation of change in bowel habits, right lower quadrant abdominal pain, and need for colorectal cancer screening. As you know, Carlos is a generally healthy 54-year-old male who describes that he was well both in general and specifically from a GI standpoint up until about 15 months ago. At that time he moved to [place] from [place] as he was in relationship with a woman. However that relationship, the subsequent moved, and other issues created a lot of stress for him which then led to the onset of GI symptoms in his opinion. He subsequently has broken up with the woman, but continues to have a lot of stress in relation to different things such as deaths of multiple friends, work, and different properties that he owns. In regard to his GI symptoms he has been having frequent episodes of stabbing and burning right lower quadrant pain. His bowel movements have become quite irregular ranging from some loose stools to several days a time without a bowel movement. He has not noticed any hematochezia nor melena. He has not had any significant heartburn, dysphagia, nausea, vomiting, nor anorexia. He did lose about 20 pounds. He has not noticed any jaundice nor fevers. He has had urinary symptoms with difficulty urinating for which he is seeing a [facility] urologist and was told of an enlarged prostate. He is going to be scheduled for a cystoscopy at some point.He does report that his weight loss has ceased and his weight has stabilized. He was seen in the ER in [place] last month for which he underwent a CT scan that describes multiple fluid filled small bowel loops in the lower abdomen and pelvis with some mild bowel wall hyperenhancement he reports that blood work at that ER visit last month was reportedly normal. suggestive of some type of enteritis.He reports that he was given a prescription for dicyclomine at that ER visit but has not yet filled the prescription. He did have blood work here in April with normal chemistries and renal function, normal LFTs, normal lipase, normal PSA, and a normal CBC. He denies any known family history of colorectal cancer, inflammatory bowel disease, nor celiac disease. * Medical History:?BPH, Denies CO,DM,CVA,Lung disease,renal disease, Anxiety/Depression. * Surgical History:?septoplast y 2006, vasectomy 1997, tonsillectomy 1977. * Family History:?Father: jim jefferson.?Mother: .? Mom passed pancreas cancer 2012.? No family history of liver disease or?colon cancer. * Social History:?Tobacco Use:?Tobacco Control (Standard)?Tobacco use:?Nonsmoker.?Miscellaneous:?Marital status: single. Occupation: farm machinery engine mechanic. ???Drug/Alcohol:?AUDIT-C (Standard)?Did you have a drink containing alcohol in the past year??No,?Points?0,?Interpretation?Negative.?Occ. pipe, rare EtOH. * Medications:?Taking Vitamin D 50 MCG (2000 UT) Tablet 1 tablet Orally Once a day , Taking PROzac 20 MG Capsule 1 capsule Orally Once a day , Taking Tamsulosin HCl 0.4 MG Capsule 1 capsule Orally Once a day , Medication List reviewed and reconciled with the patient * Allergies:?N.K.D.A. Objective: * Vitals:?Wt:211lbs, Ht: 73 in , BMI:27.84Index, BP:001/01mm Hg, Temp:97.9, Ht-cm: 185.42, Wt-k.71. Assessment: * Assessment: 1.?RLQ abdominal pain - R10. 31 (Primary)???2.?Irritable bowel syndrome - K58.9???3.?Abnormal CT scan, gastrointestinal tract - R93.3???4.?Colon cancer screening - Z12.11??? Overall, Carlos appears very well from a clinical standpoint. In regard to the etiology of his symptoms we did review the possibility that this could be some irritable bowel syndrome triggered by all of the stress that he has been under. As such, I did advise him that would be important to try to improve his bowel movement regularity and have instructed him to begin using Metamucil once or twice a day with a lot of water. I also advised him that he could try to use the dicyclomine prescription he has on apparent basis for his abdominal discomfort. However, I did advise him I would be important to exclude other things such as Crohn's disease given the recent CT scan description of the small bowel. Would also be important to rule out any other type of inflammatory bowel disease involving the colon. I think a GI neoplasm would be less likely given his good clinical appearance, reported normal laboratories, and no sign of any colonic mass on the imaging study. I did recommend a colonoscopy both for general screening purposes, as well as for evaluation of all of his symptoms and the recent abnormal CT scan. Full consent has been obtained for this, including risks of bleeding and perforation. We did review the rationale for this in regard to colorectal cancer prevention and/or early detection. The procedure will be done with monitored anesthesia care. At this point I do not think he needs an upper endoscopy given no upper GI symptoms whatsoever. I shall also check some laboratories as described below.. We shall try to get the colonoscopy scheduled fairly soon but I did advise him to contact me prior to that if he has any problems or questions I can be of assistance with. I did advise him to certainly go to the ER if he develops any worsening pain or other associated symptoms such as fevers, vomiting, or bleeding. Carlos was comfortable with this plan. Thank you again for allowing me to participate in Carlos's care. I shall continue to keep you advised of his progress.. Plan: * Treatment: Notes: Use Dicyclomine as needed fopr the abdominal pain??2.?Irritable bowel syndrome?LAB: CRP ?LAB: CBC w DIFF ?LAB: SED RATE (ESR) ?LAB: CELIAC PANEL #10 ?LAB: TSH reflex Free T4 ?Procedure: COLONOSCOPY* with MACsched for 08/21/24 at 2:30 pmmiralax Notes: Start using 2 Metamucil fiber pills once or twice a day with a lot of water to try to make the BM's more regular??3.?Abnormal CT scan, gastrointestinal tract?LAB: CRP ?LAB: CBC w DIFF ?LAB: SED RATE (ESR) ?LAB: CELIAC PANEL #10 ?LAB: TSH reflex Free T4 ?Procedure: COLONOSCOPY* with MACsched for 08/21/24 at 2:30 pmmiralax 4.?Colon cancer screening?LAB: CELIAC PANEL #10 ?Procedure: COLONOSCOPY* with MACsched for 08/21/24 at 2:30 pmmiralax * Immunizations:? Influenza (Not administered - Refused: Patient decision) * Procedure Codes:?77335 DIAGN OSTIC COLONOSCOPY * Preventive Medicine:? ??Counseling:?Care goal follow-up plan:?Above Normal BMI Follow-up?Dietary management education, guidance, and counseling,?BMI management provided?Yes.? * * The named appointment provid er may or may not be the originator of this progress note, and it is not deemed complete until electronically signed by the appointment provider. Sign off status: Pending * Provider:?Zi Martinez MD Date:? 025 Generated for Alphonso boyer/Pancho/Kalin on:?08/15/2024 11:30 AM EDT History and Physical Notes * HPI (History of Present Illness) Category Sub-Category Detail Notes Category Not es incontinence I saw Carlos in consultation today [facility] for the evaluation of change in bowel habits, right lower quadrant abdominal pain, and need for colorectal cancer screening. As you know, Carlos is a generally healthy 54-year-old male who describes that he was well both in general and specifically from a GI standpoint up until about 15 months ago. At that time he moved to [place] from [place] as he was in relationship with a woman. However that relationship, the subsequent moved, and other issues created a lot of stress for him which then led to the onset of GI symptoms in his opinion. He subsequently has broken up with the woman, but continues to have a lot of stress in relation to different things such as deaths of multiple friends, work, and different properties that he owns. In regard to his GI symptoms he has been having frequent episodes of stabbing and burning right lower quadrant pain. His bowel movements have become quite irregular ranging from some loose stools to several days a time without a bowel movement. He has not noticed any hematochezia nor melena. He has not had any significant heartburn, dysphagia, nausea, vomiting, nor anorexia. He did lose about 20 pounds. He has not noticed any jaundice nor fevers. He has had urinary symptoms with difficulty urinating for which he is seeing a [facility] urologist and was told of an enlarged prostate. He is going to be scheduled for a cystoscopy at some point.He does report that his weight loss has ceased and his weight has stabilized. He was seen in the ER in [place] last month for which he underwent a CT scan that describes multiple fluid filled small bowel loops in the lower abdomen and pelvis with some mild bowel wall hyperenhancement he reports that blood work at that ER visit last month was reportedly normal. suggestive of some type of enteritis.He reports that he was given a prescription for dicyclomine at that ER visit but has not yet filled the prescription. He did have blood work here in April with normal chemistries and renal function, normal LFTs, normal lipase, normal PSA, and a normal CBC. He denies any known family history of colorectal cancer, inflammatory bowel disease, nor celiac disease.
--- OUTSIDE RECORDS SUMMARY | 2024-08-15 11:30 | XMS_ITS | Patient Health Record ---
Author Organization [facility] Address [address] [place] [address] Care Team Providers Care Director Of Math Name Role Phone SAMIR SMITH M.D. Primary Care Provider Zi Zarate Unavailable [phone] Allergies No Known Allergies Reason For Referral Referring Provider First Name SAMIR Referring Provider Last Name LUIS Referred Organization [facility] Referred Provider Zi Martinez Referred Address [address] [facility],[address],[place], [place],[address], Referred Provider Specialty Gastroentero logy General Notes Sheron Kimbrough 2024 04:16:18 PM >[facility] Martinez on [facility]-24 Referral Priority Routine Medications Medication SIG (Take, Route, Frequency, Duration) [...] Problem Status W/U Status Risk Notes Problem Colon cancer screening (173524746) Colon cancer screening (Z12.11) Active confirmed Problem Irritable bowel syndrome (53186604) Irritable bowel syndrome (K58.9) Active confirmed Problem Imaging of gastrointestinal tract abnormal (192345155) Abnormal CT scan, gastrointestinal tract (R93.3) Active confirmed Problem Right lower quadrant pain (178961545) RLQ abdominal pain (R10.31) Active confirmed Vital Signs Temperature 97.9 degrees Fahrenheit 08/13/2024 Blood pressure diastolic 01 mm Hg 08/13/2024 Height 73 in 08/13/2024 Blood pressure systolic 001 mm Hg 08/13/2024 Weight 211 lbs 08/13/2024 BMI 27.84 kg/m2 08/13/2024 Procedures Procedure Date Ordered Date Performed Result Body Sit e COLONOSCOPY 08/13/2024 N/A Encounters Encounter Location Date Provider Diagnosis [facility] [address] [place] [address] 08/13/2024 Zi Martinez RLQ abdominal pain R 10.31 ; Irritable bowel syndrome K58.9 ; Abnormal CT scan, gastrointestinal tract R93.3 and Colon cancer screening Z12.11 Assessments Encounter Date Diagnosis (ICD Code) Assessment Notes Treatment Notes Treatment Clinical Notes Section Notes 08/13/2024 Irritable bowel syndrome (ICD-10 - K58.9) [...] keep you advised of his progress.. 08/13/2024 RLQ abdominal pain (ICD-10 - R10.31) [...] advised of his progress.. Plan Of Treatment Pending Test Test Name Order Date COLONOSCOPY 08/13/2024 CRP 08/13/2024 CBC w DIFF 08/13/2024 SED RATE (ESR) 08/13/2024 CELIAC PANEL #10 08/13/2024 TSH reflex Free T4 08/13/2024 Next Appt Details Provider Name:Zi Martinez , 08/21/2024 02:30:00 PM, [address] [place] [address] , [place], [place], [phone], Insurance Providers Payer Name Payer Address Payer Phone Subscriber Number Group Number Insured Name Patient Relationship to Insured Coverage Start Date Coverage End Date [facility] [address] [place] [address] [id number] CARLOS KC Self - patient is the insured Medical (General) History Medical History History ICD Code BPH Denies [place],DM,CVA,Lung disease,renal dise ase Anxiety/Depression Surgical History Surgery Date(Month/Year) tonsillectomy 1977 vasectomy 1997 septoplasty 2006
[2024-08-15 12:01] LABS: Basophils Percent Auto 0.6 % (0-2); Eosinophils Absolute Auto 0.1 X10*3/uL (0.0-0.4); Eosinophils Percent Auto 1.1 % (0-4); Hematocrit 45.8 % (42.0-52.0); Imm Gran Abs Auto 0.03 X10*3/uL (0.00-0.03); Imm Gran Pct Auto 0.5 % (0.0-0.4); Lymphocytes Percent Auto 14.7 % (20-40); Mean Corpuscular HGB Conc 34.9 g/dl (31.0-36.0); Mean Corpuscular Hemoglobin 30.5 pg (27.0-33.0); Mean Corpuscular Volume 87.2 fL (80.0-98.0); Mean Platelet Volume 10.1 fL (9.4-12.4); Monocytes Absolute Auto 0.6 X10*3/uL (0.1-1.2); Monocytes Percent Auto 9.4 % (2-11); Neutrophils Absolute Auto 4.9 x10*3/uL (2.0-8.3); Neutrophils Percent Auto 73.7 % (45-73); Platelet Count 190 X10*3/uL (160-400); Red Blood Count 5.25 X10*6/uL (4.60-5.80); Red Cell Distribution Width 11.6 % (11.0-16.0); White Blood Count 6.6 X10*3/uL (4.8-10.8)
[2024-08-15 12:22] LABS: C Reactive Protein < 0.10 mg/dL (< or = 0.50)
[2024-08-15 12:39] LABS: TSH reflex Free T4 0.98 uIU/mL (0.32-4.0)
[2024-08-15 12:50] LABS: Erythrocyte Sedimentation Rate 7 MM/HR (0-15)
[2024-08-18 14:43] LABS: Immunoglobulin A 215 mg/dL (47-310)
[2024-08-18 22:28] LABS: Gliadin Deamidated IgA Ab 3.6 U/mL; Gliadin Deamidated IgG Ab <1.0 U/mL; Transglutaminase Ab IgG <1.0 U/mL; Transglutaminase IgA <1.0 U/mL
[2024-08-21 16:39] LABS: Endomysial IgA Antibody Negative (Negative)
== END 2024-08-15 11:02 | disposition home or self-care (01) ==
LOC: HO.LAB 11:01
PROVIDERS: PCP Family Medicine; Visit Provider Internal Medicine
DX: R10.31 Right lower quadrant pain (principal); K58.9 Irritable bowel syndrome, unspecified; R93.3 Abnormal findings on diagnostic imaging of other parts of digestive tract
CPT/HCPCS: 36415; 82784; 84443; 85025; 85652; 86140; 86231; 86258; 86364

== ENCOUNTER 2024-08-20 09:48 | Day surgery (SDC) | payer OTHER, SELFPAY ==
--- NOTE | 2024-08-19 10:16 | HO.ANESPROP2 ---
Documented by User: Rosalinda Munson NP 08/19/24 10:16 HPI - Anesthesia Eval Consult details Narrative: 54yo M for Colonoscopy PMFSH Active Problems Active Problems: All Active Problems Bladder wall thickening (Acute) Sensation of pressure in bladder area (Acute) Lower urinary tract symptoms (Acute) Past Medical History Medical History Anxiety Depression BPH (benign prostatic hyperplasia) Family History Family History Father No problems noted. Mother Pancreatic cancer Sister In good health Surgical History Surgical History History of tonsillectomy History of nasal septoplasty History of vasectomy Social History Social History Household Members Other:: lives alone Are you a primary childcare worker to a significant other at home: No Do you presently have visiting nurse or other home services: No Patient Tobacco Use Status: Former Tobacco user Use of substances other than those prescribed or required for medical reasons: No Have you been hit, kicked, punched, or otherwise hurt by someone within the past year? If so, by whom?: No Are you DNR?: No Advance Directives: No Advance Directives Information Provided: Yes Poor oral hygiene: No Meds Allergies Allergy/AdvReac Type Severity Reaction Status Date / Time No Known Allergies Allergy Verified 07/28/24 14:28 [No Known Allergies*] Home Medications ?Medication ?Instructions ?Recorded ?Confirmed ?Last Taken ?Type cholecalciferol (vitamin D3) 50 50 mcg PO DAILY 08/19/24 08/19/24 Unknown History mcg (2,000 unit) tablet (Vitamin D3) fluoxetine 20 mg capsule (Prozac) 20 mg PO DAILY 08/19/24 08/19/24 Unknown History tamsulosin 0.4 mg capsule 0.4 mg PO DAILY 08/19/24 08/19/24 Unknown History Assessment and Plan Assessment Anesthesia Assessment: Chart Reviewed Documented by User: Armando Graham MD 08/20/24 11:31 [facility] Past Medical History Medical History Anxiety Depression BPH (benign prostatic hyperplasia) Functional capacity: independent ambulation Family History Family History Father No problems noted. Mother Pancreatic cancer Sister In good health Family history of problems with anesthesia: No Surgical History Surgical History History of tonsillectomy History of nasal septoplasty History of vasectomy History of Problems with Anesthesia: No Social History Social History Household Members Other:: lives alone Are you a primary childcare worker to a significant other at home: No Do you presently have visiting nurse or other home services: No Patient Tobacco Use Status: Former Tobacco user Use of substances other than those prescribed or required for medical reasons: No Have you been hit, kicked, punched, or otherwise hurt by someone within the past year? If so, by whom?: No Are you DNR?: No Advance Directives: No Advance Directives Information Provided: Yes Poor oral hygiene: No Meds Allergies Allergy/AdvReac Type Severity Reaction Status Date / Time No Known Allergies Allergy Verified 07/28/24 14:28 [No Known Allergies*] Home Medications ?Medication ?Instructions ?Recorded ?Confirmed ?Last Taken ?Type cholecalciferol (vitamin D3) 50 50 mcg PO DAILY 08/19/24 08/19/24 Unknown History mcg (2,000 unit) tablet (Vitamin D3) fluoxetine 20 mg capsule (Prozac) 20 mg PO DAILY 08/19/24 08/19/24 Unknown History tamsulosin 0.4 mg capsule 0.4 mg PO DAILY 08/19/24 08/19/24 Unknown History Exam Exam Date and Time: 08/20/2024 Airway Mallampati Class: II TM Dist: >3cm Neck ROM: Full Heart: rrr Lungs: cta Assessment and Plan Final Anesthetic Review Family History of Problems with Anesthesia: No History of Problems with Anesthesia: No Final Preanesthetic Review: No Changes in Pt Med Stat, Meds/Allgs Chart Reviewed and Consent Obtained/Reviewed Patient Risk: Low Anesthetic Plan Disposition: Standard PACU and Inp. Admit - Standard Bed
[2024-08-20 10:21] VITALS: BMI 27.4
[2024-08-20] MEDS: Lactated Ringers 1,000 ML 100 ML IVCONT (10:43)
[2024-08-20 10:44] VITALS: BP 130/86; PULSE 85; RESP 16; TEMP 36.9; O2SAT 97
[2024-08-20 12:15] VITALS: BP 108/72; PULSE 78; RESP 18; TEMP 36.1; O2SAT 97
[2024-08-20 12:30] VITALS: BP 109/73; PULSE 77; RESP 18; O2SAT 96
--- NOTE | 2024-08-20 12:30 | P.BOP_ITS ---
Brief Operative Note Date of Service: 08/20/24 Pre-op diagnosis: SCreening, change in BM's Post-op diagnosis: other (Diverticulosis, R/O microscopic colitis) Procedure: Colonoscopy to the cecum and TI with bx Surgeon: Zi Martinez MD Anesthesia: MAC Was an Copy Center Specialist used for this Procedure?: No Estimated blood loss (mL): 2.0 Pathology: other (A. Terminal ileum B. Ascending colon C. Descending colon) Condition: stable Disposition: PACU
[2024-08-20 12:45] VITALS: BP 115/84; PULSE 84; RESP 18; O2SAT 98
[2024-08-20 13:00] VITALS: BP 121/81; PULSE 85; RESP 18; O2SAT 99
--- NOTE | 2024-08-20 22:43 | OP_ITS ---
DATE OF SERVICE: 08/20/2024 SURGEON: Zi Martinez MD INDICATIONS: The patient presents for evaluation of intermittent abdominal pain, irregular bowel movements, and colorectal cancer screening. Full consent was obtained from him for this, including risks of bleeding and perforation. PREOPERATIVE DIAGNOSIS: POSTOPERATIVE DIAGNOSIS: PROCEDURE PERFORMED: Colonoscopy to cecum and terminal ileum with biopsies. ESTIMATED BLOOD LOSS: COMPLICATIONS: ANESTHESIA: Monitored anesthesia care. ASSISTANTS: SPECIMENS: PREOPERATIVE DIAGNOSES: Change in bowel habits, abdominal pain, and colorectal cancer screening. POSTOPERATIVE DIAGNOSES: Change in bowel habits, abdominal pain, and colorectal cancer screening, rule out microscopic colitis, mild sigmoid diverticulosis, small internal hemorrhoids. DESCRIPTION OF PROCEDURE: The patient was placed in the left lateral decubitus position. The digital rectal exam revealed no abnormalities. The Olympus video pediatric colonoscope was entered into the rectum and advanced easily to the cecum. Once in the cecum, I did identify normal-appearing cecal pouch with appendiceal orifice and a normal-appearing ileocecal valve. The entire cecum and ileocecal valve appeared normal. The terminal ileum was cannulated for least 5 to 10 cm and appeared normal. Biopsies were obtained. There was no sign of any ileitis. The scope was withdrawn back in the colon. The entire cecum and ileocecal valve appeared normal. The scope was slowly withdrawn, assessing all mucosal surfaces carefully. Preparation was excellent. I did not visualize any sign of polyps, colitis, nor angiodysplasia. There was a mild amount of sigmoid diverticulosis. Random biopsies were obtained in the ascending and descending colon. In the rectum, scope was retroflexed, visualizing small internal hemorrhoids, but no other pathology. The rectal mucosa appeared normal. Scope was straightened and withdrawn from the patient. He tolerated the procedure well and was returned to the recovery area in stable condition. IMPRESSION: 1. Mild sigmoid diverticulosis. 2. Small internal hemorrhoids. 3. Rule out microscopic colitis. PLAN: The results of the pathology will be checked. At this point, he did start some Metamucil and thinks that has helped improve his bowel movement irregularity. He does report that his weight has been stable. Given the negative exam in regard to colon polyps and no family history of colon cancer, I do not think he would need another colonoscopy for 10 years for further screening. He will see me later in the year for a followup visit. I would recommend he use antispasmodics as needed for some abdominal cramps. Recent laboratories including thyroid studies, CBC, and celiac disease labs have been negative. At this point, it seems like his course is consistent with that of irritable bowel syndrome. He will be seen later in the year for followup. MD JOCELIN Araya/SANDRA / [id number] MTDD
== END 2024-08-20 13:19 | disposition home or self-care (01) ==
PROVIDERS: PCP Family Medicine; Visit Provider Internal Medicine
PROC: 0DJD8ZZ Inspection of Lower Intestinal Tract, Via Natural or Artificial Opening Endoscopic (ICD-10-PCS; CPT 45378; principal; 2024-08-20 11:10)
DX: Z12.11 Encounter for screening for malignant neoplasm of colon (principal); K57.30 Diverticulosis of large intestine without perforation or abscess without bleeding; K64.8 Other hemorrhoids; F41.1 Generalized anxiety disorder; Z79.899 Other long term (current) drug therapy
CPT/HCPCS: 45380; 88305; J2003; J2704

== ENCOUNTER 2024-09-10 09:00 | Outpatient (RCR) | payer OTHER, SELFPAY ==
[2024-08-28 10:55] VITALS: BMI 27.9
[2024-08-28 10:56] VITALS: BP 102/80; PULSE 72; TEMP 36.7
--- NOTE | 2024-08-28 11:59 | PC.ADMIT ---
Patient is a 54 year old male who was referred [facility] secondary to increased depression and anxiety that is impacting his ability to work and function. Patient reports that he is taking FMLA and is on STD from work to work on his mental health. Patient reports many stresses including deaths of many family members and friends with in the past 15 months. Patient also reports his cat as well. Patient stated he moved to [facility], where he is from, to be with a woman he was in a relationship with. He reports that was very triggering for him to move back to the area where he was from. The relationship with the woman did not work out. Patient felt the relationship helped anchor him and now that he is not in that relationship he feels his mental health has fallen apart. He reports experiencing some issues with urinary retention when moving to [facility] and feels this has been getting better since he moved back to [place] a few weeks ago. He reports he has been seen by Urology and dx with mild BPH. Patient believes his urinary symptoms were psychosomatic. He was also prescribed Diazapam prn however he stated he did not take it at first as he was afraid to as his doctor told him it could be addicting. Patient identified supports being his aunt in [place], a friend that is close and lives here. Patient stated, I have a place to go instead of my residence that is safe to go. Some trusted friends. Residence is triggering. Stuff from divorce 10 years ago that I never cleaned out. It has been getting better getting rid of some stuff. Patient is alert and oriented x4. He is calm and cooperative. He presented with depressed mood and affect. He denied SI, no HI. He was given a copy of his safety plan if needed. Medications updated with patient and patient's pharmacy. He reports taking medications as prescribed. Patient denied having any issues with substance use. Regarding alcohol he reports having one drink a month and has tried marijuana a few times.
--- NOTE | 2024-08-28 14:23 | HO.PHP ---
Clients case was opened and reviewed in teams today.
--- NOTE | 2024-08-28 21:34 | HO.PS.ADMBH ---
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 He reports a history of psychosomatic complaints, for which he relays good insight into psychological contribution to the occurances of these types of symptoms. He was referred to [facility] by [facility] treaters at the [facility]. He relays moving to [place] for past 15 months to be closer to his girlfriend however notes that moving back to his childhood home (in [place]) has been retraumatizing due to triggering rumination and painful memories of his childhood. There was the initial stress of moving back in December 2022, and in that same week my best friend unexpectedly. Since then it's just gone downhill from there... and all the stress of trying to manage 2 houses and the travel back and forth (he maintains his home in [facility]).. I kept telling myself 'I need to leave' but I thought it was honorable to stay (for sake of the relationship) . He reports symptoms of generalized anxiety (overthinking, catastrophizing) that are persistent and have worsened along with his mood over the past year. Endorses transient feelings of helplessness, hopelessness, and questioning whether life is worth living like this, however denies any suicidal thoughts, intention, or plan to harm self. Appetite, energy, sleep poor. Denies issues with anger, aggression or HI. Denies any history suggestive of eder or psychosis. Past Psychiatric History: Denies IPLOC, PHP, respite, detox/rehab admissions Previous episode of SI w plan (in context of relationship stressors) years ago, self-presented to ED for eval but was discharged He has outpatient treaters through the [facility] Previous medications: patient was recently prescribed fluoxetine 20 mg, diazepam 2 mg as well as regular medications alfuzosin and tamsulosin but says he has since stopped taking these CURRENT MEDICATIONS: vitamin D3 2000 units daily [facility] Medical History Anxiety Depression BPH (benign prostatic hyperplasia) Narrative: Shy Bladder Syndrome (according to patient, he has been worked up for other pathology by his providers, specialisits) Surgical History History of tonsillectomy History of nasal septoplasty History of vasectomy Social History: Partnered, was living with partner in [place] for past 15 months, but has returned to [facility] in home in [place] Substance History: Denies Trauma History: Endorses Diagnostics Vital Signs (24Hr): Vital Signs - 24 hr 08/28/24 10:56 Temperature 98.1 F Pulse Rate 72 Blood Pressure 102/80 BMI result Body Mass Index 27.9 Meds/Allergies Meds Home Medications ?Medication ?Instructions ?Recorded ?Confirmed ?Type cholecalciferol (vitamin D3) 50 50 mcg PO DAILY 08/19/24 09/18/24 History mcg (2,000 unit) tablet (Vitamin D3) Allergies Allergies Allergy/AdvReac Type Severity Reaction Status Date / Time No Known Allergies (No Known Allergy Verified 09/18/24 13:47 Allergies*) Mental Status Exam Mental Status Exam Narrative: Alert, oriented, in no acute distress. Calm, cooperative, engaged. No psychomotor agitation or neurovegetative retardation. Eye contact maintained, intense. Mood anxious, depressed, affect constricted. Speech normal. Thought process linear, coherent. Thought content related to stressors, some obsessive tendencies and scrupulosity, no paranoia or delusional content elicited. ENdorses helplessness, hopelessness. Transient SI, denies any current thoughts, urge, intention or plan. Denies any aggressive ideation or HI. No evidence of psychosis. Insight and judgment - fair but adequate. Assessment & Plan Assessment & Plan (1) ELINA (generalized anxiety disorder): Status: Acute Code(s): F41.1 - Generalized anxiety disorder (2) Paruresis: Status: Acute Code(s): F40.10 - Social phobia, unspecified (3) Other specified anxiety disorders: Status: Acute Code(s): F41.8 - Other specified anxiety disorders Plan Admit to [facility] VS reviewed: afebrile, BP ;? bpm taper off fluoxetine (side effects include urinary retention) start mirtazapine 7.5- 15 mg qhs start Abilify 1-2 mg qhs continue regular medications for now Routine lab work as indicated EKG, routine for baseline QTc for medication considerations as indicated UDS as indicated MassPat reviewed Continue to monitor as per protocol Patient educated on: diagnosis and medication risk/benefits Informed Consent: understands Reason for continued partial hosp. stay Substantial Risk for: inability to function and med/psych decompensation Certification I certify that partial hospital treatment is medically necessary due to the symptoms and problems resulting from the patient's mental illness and the failure to treat the patient at the partial hospital level of care would likely result in the patient requiring inpatient psychiatric care which could not be prevented at a less intensive level of care. Time Spent With Patient Time: Total time managing care of this patient today __60__ minutes.
--- NOTE | 2024-09-05 12:36 | HO.PHPPROGNO ---
Subjective Subjective Date of Service: 09/05/24 Reason For Visit: depression Interim History: Overall good. Says he did not end up starting on the Abilify ?I do not really Wanna be taking meds if I can help it. Says he tried taking a half a tablet and ?felt like a zombie? and then stopped taking it. ?I have been doing fine without it? feels the issue was more about where he was living in the need to come back to [place] ?and leave the past behind (in [place]). He has also had to leave behind his relationship with his now ex-girlfriend which he seems to be taking in stride. He reiterates the importance of making choices that are healthy for him. Talks about family. Reports his mood is stable denies any SI. At some disrupted sleep last night the says otherwise things are well. Denies any complaints. Still looking for a lab slip in having PSA level checked. Medication Compliance: Yes Side effects from medications: No Attending Groups: Yes Review of Systems Acute medical concerns: No Mental Status Exam Mental Status Exam Narrative: Alert, oriented, in no acute distress. Calm, cooperative, engaged. No psychomotor agitation or neurovegetative retardation. Eye contact maintained. Mood good , affect still anxious, but brighter. Speech normal. Thought process linear, coherent. Thought content related to stressors, denies any hopelessness or SI. Denies any aggressive ideation or HI. No paranoia or delusional content elicited. No evidence of psychosis. Insight and judgment - fair but adequate. Diagnostics Vital Signs (24Hr): BMI result Body Mass Index 27.9 Assessment & Plan Assessment & Plan (1) ELINA (generalized anxiety disorder): Status: Acute Code(s): F41.1 - Generalized anxiety disorder (2) Paruresis: Status: Acute Code(s): F40.10 - Social phobia, unspecified (3) Other specified anxiety disorders: Status: Acute Code(s): F41.8 - Other specified anxiety disorders Plan Continue PHP taper off fluoxetine (side effects include urinary retention) mirtazapine 7.5- 15 mg qhs off Abilify continue regular medications for now Routine lab work as indicated EKG, routine for baseline QTc for medication considerations as indicated UDS as indicated MassPat reviewed Continue to monitor as per protocol Patient educated on: diagnosis and medication risk/benefits Guardian/Caregiver educated on: medical condition Informed Consent: understands Reason for contiued partial hosp. stay Substantial Risk for: med/psych decompensation Certification I certify that partial hospital treatment is medically necessary due to the symptoms and problems resulting from the patient's mental illness and the failure to treat the patient at the partial hospital level of care would likely result in the patient requiring inpatient psychiatric care which could not be prevented at a less intensive level of care. Total time managing care of this patient today _30___ minutes. Discharge Plan Discharge Attending provider: Nadeen Tee Medications: New mirtazapine 15 mg tablet 15 mg PO BEDTIME Qty: 14 0RF aripiprazole 2 mg tablet 2 mg PO BEDTIME Qty: 20 0RF No Action tamsulosin 0.4 mg capsule 0.4 mg PO DAILY fluoxetine [Prozac] 20 mg Capsule 20 mg PO DAILY cholecalciferol (vitamin D3) [Vitamin D3] 50 mcg (2,000 unit) Tablet 50 mcg PO DAILY diazepam 2 mg Tablet 2 mg PO DAILY PRN (Reason: Anxiety) alfuzosin 10 mg tablet extended release 24 hr 10 mg PO BEDTIME 30 Days Qty: 30 3RF Rx Instructions: Take before bedtime Stand Alone Forms: Patient Portal Discharge page Print Language: Other
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
--- NOTE | 2024-09-10 21:59 | P.PNPSP_ITS ---
Subjective Subjective Date of Service: 09/09/24 Reason For Visit: depression Interim History: Talked to my counselor, they suggested I see if I stay through end of week . Patient initially didn't feel it was necessary to stay a few more days, but from a practical stand point says he doesnt have anything else going on and I feel I would benefit from a few additional days . He is just settling back in to his home in [place] after returninng from [place]. Feels he is back at baseline, anxiety p ersists but feels he is gaining better coping skills. I am feeling optimistic . The shy bladder issues have returned since Sunday which was a stressful day (was in [place]) and has persisted since. Maintains good insight into psychosomatic issue. Is open to trying lorazepam to see if helpful with urination problem. He is otherwise not taking medications, tapered off fluoxetine and only tried mirtazapine and ABilify for a day and quit. Medication Compliance: Yes Side effects from medications: No Attending Groups: Yes Review of Systems Acute medical concerns: No Mental Status Exam Mental Status Exam Narrative: Alert, oriented, in no acute distress. Calm, cooperative, engaged. No psychomotor agitation or neurovegetative retardation. Eye contact maintained. Mood anxious, affect variable, mood congruent. Speech normal. Thought process linear, coherent. Thought content related to stressors, denies any hopelessness or SI. Denies any aggressive ideation or HI. No paranoia or delusional content elicited. No evidence of psychosis. Insight and judgment - fair but adequate. 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 Assessment and Plan: h/o dx Shy bladder syndrome (however problem persists at home as well) (3) Paruresis: Status: Acute Code(s): F40.10 - Social phobia, unspecified Plan Anticipate discharge tomorrow from [facility] off fluoxetine mirtazapine, Abilify start lorazepam 0.5 mg qd prn continue regular medications for now Routine lab work as indicated EKG, routine for baseline QTc for medication considerations as indicated UDS as indicated MassPat reviewed Will defer further medication management to outpatient provider Patient educated on: diagnosis and medication risk/benefits Informed Consent: understands Reason for contiued partial hosp. stay Substantial Risk for: stable for discharge and med/psych decompensation Certification I certify that partial hospital treatment is medically necessary due to the symptoms and problems resulting from the patient's mental illness and the failure to treat the patient at the partial hospital level of care would likely result in the patient requiring inpatient psychiatric care which could not be prevented at a less intensive level of care. Total time managing care of this patient today _30___ minutes. Discharge Plan Discharge Attending provider: Nadeen Tee Medications: New lorazepam 0.5 mg tablet 0.5 mg PO DAILY PRN (Reason: anxiety) Qty: 20 0RF Continued cholecalciferol (vitamin D3) [Vitamin D3] 50 mcg (2,000 unit) Tablet 50 mcg PO DAILY Discontinued tamsulosin 0.4 mg capsule 0.4 mg PO DAILY fluoxetine [Prozac] 20 mg Capsule 20 mg PO DAILY diazepam 2 mg Tablet 2 mg PO DAILY PRN (Reason: Anxiety) alfuzosin 10 mg tablet extended release 24 hr 10 mg PO BEDTIME 30 Days Qty: 30 3RF Rx Instructions: Take before bedtime Stand Alone Forms: Patient Portal Discharge page Patient Education: Anxiety (ED) Print Language: Other
== END 2024-09-10 23:59 | disposition home or self-care (01) ==
LOC: HO.PHPA 09:00
PROVIDERS: Visit Provider Psychiatry & Neurology Psychiatry
DX: F41.1 Generalized anxiety disorder (principal); F45.1 Undifferentiated somatoform disorder; F40.10 Social phobia, unspecified; F41.8 Other specified anxiety disorders
CPT/HCPCS: 90791; 90853

== ENCOUNTER 2024-09-10 14:34 | Outpatient (REF) | payer OTHER, SELFPAY ==
--- OUTSIDE RECORDS SUMMARY | 2024-09-10 16:45 | XMS_ITS ---
Author Organization [facility] Address [address] [place] [phone] Care Team Providers Care Hardware Technician Name Role Phone SAMIR SMITH M.D. Primary Care Provider Zi Zarate [phone] REASON FOR VISIT please schedule visit with Dr. Martinez/ pt requesting results from procedure last week Encounters Encounter Location Date Provider Diagnosis [facility] [address] [facility] [address] [place] [phone] 08/26/2024 Zi Martinez Plan Of Treatment Next Appt Details Provider Name:Zi Martinez , 12/05/2024 02:00:00 PM, [address], [address], [place], [address], Progress Notes * ERMELINDA KCOB: 2 (54 yo M)Acc No.[id number]:08/26/2024 Patient:?CARLOS KC :1970???Age:54 Y???Sex:Male Address:[address] [place] [address], [phone] * true * Date:? Generated for Printi merlin/Pancho/eTransmitting on:?09/10/2024 04:44 PM EDT
[2024-09-13 18:34] LABS: Zinc 58 mcg/dL (60-130)
[2024-09-14 20:28] LABS: Testosterone, Free 45.2 pg/mL (35.0-155.0); Testosterone, Total 411 ng/dL (250-1100)
== END 2024-09-10 14:35 | disposition home or self-care (01) ==
LOC: HO.LAB 14:34
PROVIDERS: PCP Family Medicine; Visit Provider Psychiatry & Neurology Psychiatry
DX: F32.9 Major depressive disorder, single episode, unspecified (principal); R53.83 Other fatigue
CPT/HCPCS: 36415; 84402; 84403; 84630

== ENCOUNTER 2024-09-18 13:01 | Outpatient (AMB) | payer OTHER, SELFPAY ==
--- OUTSIDE RECORDS SUMMARY | 2024-08-26 10:43 | XMS_ITS ---
Author Organization [facility] Address [address] [place] [phone] Care Team Providers Care Corporate Aircraft Mechanic Name Role Phone SAMIR SMITH M.D. Primary Care Provider Zi Zarate [phone] REASON FOR VISIT please schedule visit with Dr. Martinez/ pt requesting results from procedure last week Encounters Encounter Location Date Provider Diagnosis [facility] [address] [facility] [address] [place] [phone] 08/26/2024 Zi Martinez Plan Of Treatment Next Appt Details Provider Name:Zi Martinez , 12/05/2024 02:00:00 PM, [address] [facility], [address], [place], [address], Progress Notes * ERMELINDA KCOB: 2 (54 yo M)Acc No.[id number]:08/26/2024 Patient: CARLOS CONTI :1970 A ge:54 Y S ex:Male Address:[address] [place] [address], [phone] * true * Date: Generated for Printi merlin/Pancho/eTransmitting on: 09/18/2024 02:07 PM EDT
--- NOTE | 2024-09-18 13:00 | A.OFFVIS_ITS ---
Intake Visit Reasons: cysto Intake Note: Patient presents today for cystoscopy on: Urology Medications: none Blood Thinner: none no allergies to abx Instructional Technologist Required: No Accompanied by: Self / Same As Patient Allergies No Known Allergies (No Known Allergies*) Allergy (Verified 09/18/24 13:47) Medication List - Last Reconciled 09/18/24 by BULMARO Tim cholecalciferol (vitamin D3) (Vitamin D3) 50 mcg PO DAILY lorazepam 0.5 mg PO DAILY PRN HPI Comments Details: Shamar is a 54-year-old male patient of Dr. Freeman. He presents to the office today for follow-up of his lower urinary tract symptoms. In discussion with the patient today he reports having recently undergone 2 week stress relief program here at [facility] in discusses feeling how helpful this has been. He reports feeling he has had no bothersome urinary issues or concerns. He feels lower urinary tract symptoms are related to stress. He discusses having changed his diet in his consuming less coffee and has also found this helpful in decreasing lower urinary tract symptoms he had been experiencing. In office cystoscopy was performed. Mild irritation noted throughout the bladder as well as stage II trabeculations otherwise no bladder tumors were visualized. In office urinalysis results reviewed with the patient today pH 5.5. We discussed the importance of adequate hydration relation to lower urinary tract symptoms as well as overall health and well-being. We did discussed further treatment options and risks and benefits of these treatment options. He would like to continue with surveillance monitoring as he feels lower urinary tract symptoms have significantly improved. He has not experienced any vibrating sensations and or bladder pressure. He denies urinary urgency, urinary frequency, incontinence, nocturia, hematuria, dysuria, foul smelling urine, changes to urinary stream, flank pain, fever, and or chills. We discussed bladder triggers and irritants. He has previously trialed Flomax however does not recall if he found this helpful. PSA 04/26 0.4. We discussed in office cystoscopy for further assessment evaluation and risks and benefits of this intervention. All questions were answered. He otherwise offers no other issues or concerns at this time. [facility] Medical History Anxiety Depression BPH (benign prostatic hyperplasia) Surgical History History of tonsillectomy History of nasal septoplasty History of vasectomy Family History Father No problems noted. Mother Pancreatic cancer Sister In good health Social History Household Members: None Household Members Other:: lives alone Are you a primary rn medicare to a significant other at home: No Do you presently have visiting nurse or other home services: No Patient Tobacco Use Status: Never used Tobacco Review of Systems Const All systems reviewed & are unremarkable except as noted in HPI and below Physical Exam Const General: cooperative, healthy appearing, comfortable, no acute distress, well developed, alert and awake Orientation/consciousness: patient oriented x3 Limitations: no limitations HEENT Head: Yes normal to inspection, Yes normocephalic and Yes atraumatic Ears: hearing grossly normal bilaterally Eyes General: appearance normal, both eyes and all related structures Neck Neck: Yes normal visual inspection and Yes trachea midline Chest Chest palpation & inspection: normal inspection of the chest Resp Effort & Inspection: normal respiratory effort and able to speak in complete sentences Cardio Rate: regular rate GI Inspection: Yes normal to inspection General: Yes no CVA tenderness Male General Exam: Yes normal external exam Back/Spine/Pelvis Back: no CVA tenderness Skin General skin exam: no rashes or lesions noted Neuro General: patient oriented x3 Extrem General: Yes normal to inspection Psych Appearance: grossly normal and well kempt Mental Status: mental status grossly normal Speech and movement: Normal speech and movement present and Clear speech present Affect: normal affect Attitude: cooperative Thought process: Normal thought process present Thought content: Normal thought content present Insight: Fair insight present (Psych) Judgement: Fair judgement present (Psych) Office Procedures Cystoscopy Consent Discussed risk and benefit or proposed procedure with the patient. Information consent for procedure given to the patient. Discussed technical aspects, risks, benefits and alternatives in full. Addressed all of the patient's questions and concerns regarding the procedure. The patient demonstrated knowledge and understanding. They wish to proceed with this procedure. Preparation The patient was prepped in the usual manner. A form grader operator was present and in the room. Genitalia was prepped with betadine solution in a sterile manner. Lidocaine Jelly 2% was placed into the urethra and 16Fr flexible cystoscope was inserted into the meatus after adequate lubrication. Procedure Meatus normal position Urethra normal Bladder examination with retroflexion of cystoscope Bladder Orifices normal shape and position Bladder Capacity moderate Trabeculations moderate Cellule Formation present Diverticulum Formation none Mucosal Erythema mild to moderate in some areas throughout the bladder Bladder Tumor none patient tolerated procedure well [id number] DISPOSABLE SCOPE URO-G FLEXIBLE SCOPE Procedure code (CPT) selection complete Office Meds lidocaine HCl 2 % mucosal jelly in applicator Performing Provider: BULMARO Tim Performing Location: [facility] Administered by: Vicky Perez RN on 09/18/24 13:56 Dose Route Admin Location Dispensed Lot Number Expiration Date ND Flooring Salesperson 10 mL intra-urethral 10 mL nitrofurantoin monohydrate/macrocrystals 100 mg capsule Performing Provider: BULMARO Tim Performing Location: [facility] Administered by: Vicky Perez RN on 09/18/24 13:56 Dose Route Admin Location Dispensed Lot Number Expiration Date ND Flooring Salesperson 100 mg PO 1 cap Results AMB Urinalysis, Automated UA Leukoctes 0 Kasia/uL Last Edit by Nisha Gonzalez MA on 09/18/24 13:28 UA Nitrite Negative Last Edit by Nisha Gonzalez MA on 09/18/24 13:28 UA Urobilinogen 3.5 mg/dL Last Edit by Nihsa Gonzalez MA on 09/18/24 13:28 UA Protein 15 mg/dL Last Edit by Nisha Gonzalez MA on 09/18/24 13:28 UA pH 5.5 Last Edit by Nisha Gonzalez MA on 09/18/24 13:28 UA Blood 0 Kofi/uL Last Edit by Nisha Gonzalez MA on 09/18/24 13:28 UA Specific [place] 1.030 Last Edit by Nisha Gonzalez MA on 09/18/24 13:28 UA Ketone Negative Last Edit by Nisha Gonzalez MA on 09/18/24 13:28 UA Bilirubin 0 mg/dL Last Edit by Nisha Gonzalez MA on 09/18/24 13:28 UA Glucose 0 mg/dL Last Edit by Nisha Gonzalez MA on 09/18/24 13:28 Results Reviewed Results Reviewed: Laboratory Last Values Urine pH (Auto) 5.5 09/18/24 13:26 Specific [place] (Auto) 1.030 09/18/24 13:26 Urine Protein (Auto) 15 mg/dL 09/18/24 13:26 Glucose (UA)(Auto) 0 mg/dL 09/18/24 13:26 Urine Ketones (Auto) Negative 09/18/24 13:26 Urine Blood (Auto) 0 Kofi/uL 09/18/24 13:26 Urine Nitrite (Auto) Negative 09/18/24 13:26 Urine Bilirubin (Auto) 0 mg/dL 09/18/24 13:26 Urine Urobilinogen (Auto) 3.5 mg/dL 09/18/24 13:26 Leukocyte Esterase (Auto) 0 Kasia/uL 09/18/24 13:26 Assessment & Plan Assessment & Plan (1) Lower urinary tract symptoms: Code(s): R39.9 - Unspecified symptoms and signs involving the genitourinary system Category: Medical (2) Bladder wall thickening: Code(s): N32.89 - Other specified disorders of bladder Category: Medical Plan In office urinalysis results with the patient today; as noted above. In office cystoscopy was performed We discussed bladder triggers and irritants. We discussed the importance of adequate hydration in relation to lower urinary tract symptoms as well as overall health and well-being. We also discussed further treatment options of lower urinary tract symptoms patient has been experiencing however he feels symptoms have somewhat subsided will continue with surveillance monitoring. He currently denies any bothersome urinary issues or concerns. Follow-up in 3-6 months with [facility]; or sooner with any issues, concerns, and or questions. Orders: Orders AMB Cystoscopy 09/18/24 N32.89 - Other specified disorders of bladder, R39.89 - Other symptoms and signs involving the genitourinary system AMB Urinalysis Automated 09/18/24 Z13.9 - Encounter for screening, unspecified Patient Instructions: The patient had an opportunity to ask questions regarding the treatment plan. All questions were answered. Physical exam, labs, and imaging were discussed and reviewed in detail. As well as risks, benefits, and discussion of treatment choices. No major barriers to understanding were identified. The patient expressed understanding and agreement with the above treatment plan. The patient was made aware they should contact our office by phone for worsening of their current condition, the appearance of new symptoms, or with any questions or concerns. Compliance is encouraged with any medications and follow up testing that is ordered. It is a privilege to be allowed the opportunity to participate in? your urological care.? Again, if you have any questions or concerns If you have any questions or concerns please do not hesitate to contact me. The office is [phone]. This note is constructed using voice recognition software. While every effort has been made to ensure accuracy volunteer firefighter errors may have been included. Yours sincerely, Kristin He currently denies any bothersome urinary issues or concerns. BULMARO Zamora Coding Level of Care Code Est Pt Level 3 (05863) Diagnoses Lower urinary tract symptoms R39.9 Bladder wall thickening N32.89 CPT Codes Cystoscopy - CPT: 32156-[id number] ([id number]) Time Spent (min) 30
== END 2024-09-18 13:46 | disposition home or self-care (01) ==
LOC: HO.HUSH 13:01
PROVIDERS: PCP Family Medicine; Visit Provider Nurse Practitioner Family
DX: N32.89 Other specified disorders of bladder (principal); R39.89 Other symptoms and signs involving the genitourinary system
CPT/HCPCS: 52000; 99213

== ENCOUNTER → 2024-09-18 13:01 | Outpatient (BNVA) | payer OTHER, SELFPAY | PROVIDERS: PCP Family Medicine; Visit Provider Nurse Practitioner Family | DX: R39.9 Unspecified symptoms and signs involving the genitourinary system (principal); N32.89 Other specified disorders of bladder | CPT/HCPCS: 52000; 81003; 99212 ==